=== PATIENT | male | born 1970 | race African-American/Black ===

== ENCOUNTER 2017-04-22 11:07 | Inpatient (IN) | payer OTHER ==
[~2017-04-22] VITALS: Ht 162.6 cm; Wt 61.0 kg
[2017-04-22] VITALS (13 sets, daily range): BP systolic 97–134; BP diastolic 51–76
[2017-04-22] MEDS ORDERED: GABA-531 PO (11:35)
[2017-04-22] MEDS ORDERED: OMEP20 PO (11:35)
[2017-04-22] MEDS ORDERED: BACL10TA PO (11:35)
[2017-04-22] MEDS ORDERED: MULT-1192 PO (11:35)
[2017-04-22] MEDS ORDERED: RIVA20TA PO (11:35)
[2017-04-22] MEDS ORDERED: VANCOMYCIN HCL 1 GM/D5% WATER 200 ML IV ONE ×2 (11:45→22:00)
[2017-04-22] MEDS ORDERED: SODIUM CHLORIDE 0.9% 1,000 ML IV ONE ×2 (12:00→13:45)
[2017-04-22 12:48] LABS: BASOPHILS % (AUTO) 0.2 % (0.0-2.0); EOSINOPHILS % (AUTO) 2.5 % (1.0-6.0); LYMPHOCYTES # (AUTO) 1.5 K/uL (1.0-4.8); LYMPHOCYTES % (AUTO) 12.9 % (22.0-44.0); MEAN CORPUSCULAR HEMOGLOBIN 23.7 pg (26.0-34.0); MEAN CORPUSCULAR HGB CONC 34.8 G/dL (31.0-37.0); MEAN CORPUSCULAR VOLUME 68 fL (80-100); MONOCYTES # (AUTO) 0.9 K/uL (0.1-1.0); MONOCYTES % (AUTO) 7.7 % (2.0-9.0); NEUTROPHILS # (AUTO) 9.2 K/uL (1.8-7.7); NEUTROPHILS % (AUTO) 76.7 % (40.0-70.0); PLATELET COUNT (AUTO) 379 K/uL (150-450); RED BLOOD CELL COUNT(AUTO) 2.21 MIL/uL (4.50-5.90); RED CELL DISTRIBUTION WIDTH 19.9 % (11.5-14.5)
[2017-04-22 12:54] LABS: HEMATOCRIT 15.1 % (41-53); HEMOGLOBIN 5.2 g/dL (13.5-17.5)
[2017-04-22 13:07] LABS: ANION GAP 10 mmol/L (8-16); CALCIUM, TOTAL 8.8 mg/dL (8.8-10.5); CARBON DIOXIDE 26 mmol/L (22-29); CHLORIDE 101 mmol/L (98-107); CREATININE 0.77 mg/dL (0.60-1.30); GLOMERULAR FILTR. RATE CALC > 60 mL/min (>60); POTASSIUM 3.6 mmol/L (3.5-5.1); SODIUM SERUM 137 mmol/L (136-145); UREA NITROGEN, BLOOD 9 mg/dL (7-18)
[2017-04-22 13:13] LABS: ALANINE AMINOTRANSFERASE 21 U/L (12-78); ALBUMIN 2.8 g/dL (3.4-5.0); ASPARTATE AMINOTRANSFERASE 15 U/L (15-37); BILIRUBIN,TOTAL 1.6 mg/dL (0.1-1.0); TOTAL PROTEIN, SERUM 7.3 g/dL (6.4-8.2)
[2017-04-22] MEDS ORDERED: ONDANSETRON HCL 4 MG/2 ML VIAL IVP PRN (13:30)
[2017-04-22] MEDS ORDERED: ACETAMINOPHEN 325 MG TABLET PO PRN (13:30)
[2017-04-22 13:34] LABS: ORIG DRAW (USER) PTC
[2017-04-22 13:45] LABS: RBC MORPHOLOGY COMMENT ABNORMAL RBC MORPH
[2017-04-22] MEDS ORDERED: MORPHINE SULFATE 2 MG/ML SYRINGE IVP PRN (13:45)
[2017-04-22] MEDS ORDERED: OxyCODONE HCL/ACETAMINOPHEN 5-325 MG TABLET PO PRN (13:45)
[2017-04-22] MEDS ORDERED: ALBUTEROL SULFATE 2.5 MG/0.5 ML NEB SOLUTION NEB PRN (13:45)
[2017-04-22] MEDS ORDERED: MAGNESIUM HYDROXIDE SUSPENSION 30 ML UDCUP PO PRN (13:45)
[2017-04-22 13:52] LABS: INR 1.4 (0.9-1.1); PROTHROMBIN TIME 14.7 SEC (9.4-11.6)
[2017-04-22 14:44] LABS: REFLEX LACTIC ACID? YES YES
[2017-04-22] MEDS ORDERED: GADOBUTROL 1 MMOL/ML 10 ML VIAL IVP ONE (16:14)
[2017-04-22] MEDS: MULTIVITAMINS WITH MINERALS, THERAPEUTIC TABLET PO SCH (18:44)
[2017-04-22] MEDS: PANTOPRAZOLE SODIUM 40 MG DR TABLET PO SCH (18:44)
[2017-04-22] MEDS ORDERED: INFLUENZA VIRUS VACCINE QVS 2017-18 (3YR+)/PF 60 MCG/0.5 ML SYRINGE IM ONE (18:45)
[2017-04-22] MEDS: DOCUSATE SODIUM 100 MG CAPSULE PO SCH (21:33)
[2017-04-22] MEDS: SOD FERRIC GLUC COMPLX/SUCROSE 125 MG in SODIUM CHLORIDE 0.9% 100 ML IV SCH (21:34)
[2017-04-23] VITALS (15 sets, daily range): BP systolic 112–152; BP diastolic 63–96
[2017-04-23] MEDS: VANCOMYCIN HCL 1 GM/D5% WATER 200 ML IV SCH ×3 (06:11→22:23)
[2017-04-23 06:42] LABS: BASOPHILS % (AUTO) 0.2 % (0.0-2.0); HEMATOCRIT 22.2 % (41-53); HEMOGLOBIN 7.6 g/dL (13.5-17.5); LYMPHOCYTES # (AUTO) 1.4 K/uL (1.0-4.8); LYMPHOCYTES % (AUTO) 10.9 % (22.0-44.0); MEAN CORPUSCULAR HGB CONC 34.5 G/dL (31.0-37.0); MEAN CORPUSCULAR VOLUME 73 fL (80-100); MONOCYTES # (AUTO) 0.9 K/uL (0.1-1.0); MONOCYTES % (AUTO) 6.8 % (2.0-9.0); NEUTROPHILS # (AUTO) 10.3 K/uL (1.8-7.7); NEUTROPHILS % (AUTO) 79.1 % (40.0-70.0); PLATELET COUNT (AUTO) 367 K/uL (150-450); RED BLOOD CELL COUNT(AUTO) 3.06 MIL/uL (4.50-5.90); RED CELL DISTRIBUTION WIDTH 23.5 % (11.5-14.5)
[2017-04-23 06:48] LABS: ANION GAP 8 mmol/L (8-16); CALCIUM, TOTAL 8.6 mg/dL (8.8-10.5); CARBON DIOXIDE 26 mmol/L (22-29); CHLORIDE 102 mmol/L (98-107); CREATININE 0.65 mg/dL (0.60-1.30); GLOMERULAR FILTR. RATE CALC > 60 mL/min (>60); POTASSIUM 3.6 mmol/L (3.5-5.1); SODIUM SERUM 136 mmol/L (136-145); UREA NITROGEN, BLOOD 7 mg/dL (7-18)
[2017-04-23] MEDS: DOCUSATE SODIUM 100 MG CAPSULE PO SCH ×2 (09:30→21:00)
[2017-04-23] MEDS: MULTIVITAMINS WITH MINERALS, THERAPEUTIC TABLET PO SCH (09:30)
[2017-04-23] MEDS: PANTOPRAZOLE SODIUM 40 MG DR TABLET PO SCH (09:31)
[2017-04-23 09:33] LABS: RBC MORPHOLOGY COMMENT ABNORMAL RBC MORPH
[2017-04-23] MEDS ORDERED: LORazepam 2 MG/ML VIAL IVP ONE (10:00)
[2017-04-23] MEDS: SOD FERRIC GLUC COMPLX/SUCROSE 125 MG in SODIUM CHLORIDE 0.9% 100 ML IV SCH (14:59)
[2017-04-23 15:02] LABS: APPEARANCE,URINE TURBID (CLEAR); GLUCOSE, URINE (UA) NEGATIVE (NEGATIVE); KETONES,URINE TRACE mg/dL (NEGATIVE); LEUKOCYTE ESTERASE ,URINE SMALL (NEGATIVE); OCCULT BLOOD,URINE NEGATIVE (NEGATIVE); PROTEIN,URINE TRACE (NEGATIVE)
[2017-04-23] MEDS ORDERED: SODIUM CHLORIDE 0.9% 1,000 ML IV ONE (15:02)
[2017-04-23] MEDS ORDERED: SODIUM CHLORIDE 0.9% 100 ML ONE (15:10)
[2017-04-23 15:24] LABS: ADD UA MICROSCOPIC YES
[2017-04-23 15:39] LABS: CALCIUM OXALATE CRYSTALS,UR Few /LPF (None Seen); RBC,URINE 0-2 /HPF (0-2); SQUAMOUS EPITHELIAL CELL,UR Few /LPF (None Seen); WBC,URINE None Seen /HPF (0-5)
[2017-04-23] MEDS: POTASSIUM CHL 20 MEQ/D5-0.45NS 1,000 ML IV SCH (21:08)
[2017-04-24] VITALS (15 sets, daily range): BP systolic 119–158; BP diastolic 57–93
[2017-04-24] MEDS: POTASSIUM CHL 20 MEQ/D5-0.45NS 1,000 ML IV SCH (05:30)
[2017-04-24] MEDS: VANCOMYCIN HCL 1 GM/D5% WATER 200 ML IV SCH ×3 (06:36→23:14)
[2017-04-24 06:56] LABS: BASOPHILS % (AUTO) 0.2 % (0.0-2.0); EOSINOPHILS % (AUTO) 1.7 % (1.0-6.0); HEMOGLOBIN 10.3 g/dL (13.5-17.5); LYMPHOCYTES # (AUTO) 1.1 K/uL (1.0-4.8); LYMPHOCYTES % (AUTO) 6.5 % (22.0-44.0); MEAN CORPUSCULAR HEMOGLOBIN 25.7 pg (26.0-34.0); MEAN CORPUSCULAR HGB CONC 34.2 G/dL (31.0-37.0); MEAN CORPUSCULAR VOLUME 75 fL (80-100); MONOCYTES # (AUTO) 0.3 K/uL (0.1-1.0); MONOCYTES % (AUTO) 1.5 % (2.0-9.0); NEUTROPHILS # (AUTO) 15.6 K/uL (1.8-7.7); PLATELET COUNT (AUTO) 200 K/uL (150-450); RED BLOOD CELL COUNT(AUTO) 3.98 MIL/uL (4.50-5.90); RED CELL DISTRIBUTION WIDTH 23.6 % (11.5-14.5); WHITE BLOOD COUNT (AUTO) 17.3 K/uL (4.5-11.0)
[2017-04-24 07:04] LABS: NEUTROPHILS % (AUTO) 90.1 % (40.0-70.0)
[2017-04-24 07:11] LABS: ANION GAP 8 mmol/L (8-16); CALCIUM, TOTAL 8.5 mg/dL (8.8-10.5); CARBON DIOXIDE 25 mmol/L (22-29); CHLORIDE 105 mmol/L (98-107); CREATININE 0.72 mg/dL (0.60-1.30); GLOMERULAR FILTR. RATE CALC > 60 mL/min (>60); POTASSIUM 4.2 mmol/L (3.5-5.1); SODIUM SERUM 138 mmol/L (136-145); UREA NITROGEN, BLOOD 6 mg/dL (7-18)
[2017-04-24] MEDS: DOCUSATE SODIUM 100 MG CAPSULE PO SCH ×2 (08:39→20:18)
[2017-04-24] MEDS: PANTOPRAZOLE SODIUM 40 MG DR TABLET PO SCH (08:39)
[2017-04-24] MEDS: MULTIVITAMINS WITH MINERALS, THERAPEUTIC TABLET PO SCH (08:39)
[2017-04-24 09:55] LABS: INR 1.1 (0.9-1.1); PROTHROMBIN TIME 11.9 SEC (9.4-11.6)
[2017-04-24] MEDS ORDERED: RINGERS SOLUTION,LACTATED 1,000 ML IV ONE ×2 (10:00→10:04)
[2017-04-24] MEDS ORDERED: SODIUM CHLORIDE 0.9% 10 ML ONE (10:53)
[2017-04-24] MEDS ORDERED: SODIUM CL IRRIG SOLN BAG 3,000 ML IRRIG ONE (10:54)
[2017-04-24] MEDS ORDERED: BACITRACIN 50,000 UNITS/VIAL ONE (10:55)
[2017-04-24] MEDS ORDERED: HYDROmorphone 2 MG/ML SYRINGE IVP PRN (12:15)
[2017-04-24] MEDS ORDERED: SODIUM HYPOCHLORITE 0.25% [HALF STRENGTH] 473 ML SOLUTION TP ONE (12:15)
[2017-04-24] MEDS ORDERED: MEPERIDINE-PF 25 MG/ML SYRINGE IVP PRN (12:15)
[2017-04-24] MEDS ORDERED: FentaNYL CITRATE-PF 100 MCG/2 ML VIAL IVP PRN (12:15)
[2017-04-24] MEDS: PIPERACILLIN/TAZO 3.375 GM/D5W 50 ML IV SCH ×2 (15:18→20:18)
[2017-04-24] MEDS: SOD FERRIC GLUC COMPLX/SUCROSE 125 MG in SODIUM CHLORIDE 0.9% 100 ML IV SCH (18:43)
[2017-04-24] MEDS: OXYGEN THERAPY IH SCH (20:00)
[2017-04-24] MEDS: BACLOFEN 10 MG TABLET PO SCH (21:17)
[2017-04-24] MEDS: GABAPENTIN 300 MG CAPSULE PO SCH (21:17)
[2017-04-24] MEDS ORDERED: METOCLOPRAMIDE HCL 5 MG/ML 2 ML VIAL IVP ONE (23:57)
[2017-04-24] MEDS ORDERED: MIDAZOLAM HCL 2 MG/2 ML VIAL IVP ONE (23:57)
[2017-04-24] MEDS ORDERED: FentaNYL CITRATE-PF 100 MCG/2 ML VIAL IVP ONE (23:57)
[2017-04-24] MEDS ORDERED: PROPOFOL 1% 20 ML VIAL IVP ONE (23:57)
[2017-04-24] MEDS ORDERED: DEXAMETHASONE SOD PHOS 4 MG/ML VIAL IVP ONE (23:57)
[2017-04-24] MEDS ORDERED: NEOSTIGMINE METHYLSULFATE 1 MG/ML 10 ML VIAL IVP ONE (23:57)
[2017-04-24] MEDS ORDERED: GLYCOPYRROLATE 0.2 MG/ML VIAL IM ONE (23:57)
[2017-04-24] MEDS ORDERED: ROCURONIUM BROMIDE 10 MG/ML 5 ML VIAL IVP ONE (23:57)
[2017-04-24] MEDS ORDERED: KETOROLAC TROMETHAMINE 60 MG/2 ML VIAL IM ONE (23:57)
[2017-04-24] MEDS ORDERED: ONDANSETRON HCL 4 MG/2 ML VIAL IVP ONE (23:57)
[2017-04-24] MEDS ORDERED: LIDOCAINE HCL/PF 2% 5 ML VIAL IM ONE (23:57)
[2017-04-25] MEDS: POTASSIUM CHL 20 MEQ/D5-0.45NS 1,000 ML IV SCH ×3 (01:30→23:07)
[2017-04-25] MEDS: PIPERACILLIN/TAZO 3.375 GM/D5W 50 ML IV SCH ×4 (03:47→20:41)
[2017-04-25 04:56] VITALS: BP 139/73
[2017-04-25] MEDS: ACETAMINOPHEN 325 MG TABLET PO PRN (05:24)
[2017-04-25] MEDS: VANCOMYCIN HCL 1 GM/D5% WATER 200 ML IV SCH ×3 (05:24→23:08)
[2017-04-25 06:51] LABS: ANION GAP 10 mmol/L (8-16); CALCIUM, TOTAL 8.7 mg/dL (8.8-10.5); CARBON DIOXIDE 25 mmol/L (22-29); CHLORIDE 106 mmol/L (98-107); CREATININE 0.79 mg/dL (0.60-1.30); GLOMERULAR FILTR. RATE CALC > 60 mL/min (>60); POTASSIUM 3.5 mmol/L (3.5-5.1); SODIUM SERUM 141 mmol/L (136-145); UREA NITROGEN, BLOOD 5 mg/dL (7-18)
[2017-04-25 07:53] VITALS: BP 135/61
[2017-04-25] MEDS: OXYGEN THERAPY IH SCH ×2 (08:00→20:41)
[2017-04-25] MEDS: BACLOFEN 10 MG TABLET PO SCH ×3 (08:14→20:41)
[2017-04-25] MEDS: GABAPENTIN 300 MG CAPSULE PO SCH (08:14)
[2017-04-25] MEDS: MULTIVITAMINS WITH MINERALS, THERAPEUTIC TABLET PO SCH (08:15)
[2017-04-25] MEDS: DOCUSATE SODIUM 100 MG CAPSULE PO SCH ×2 (08:15→21:00)
[2017-04-25] MEDS: PANTOPRAZOLE SODIUM 40 MG DR TABLET PO SCH (08:15)
[2017-04-25 11:50] VITALS: BP 158/97
[2017-04-25] MEDS: SOD FERRIC GLUC COMPLX/SUCROSE 125 MG in SODIUM CHLORIDE 0.9% 100 ML IV SCH (18:14)
[2017-04-25 19:52] VITALS: BP 139/79
[2017-04-25 23:48] VITALS: BP 174/90
[2017-04-26] MEDS: PIPERACILLIN/TAZO 3.375 GM/D5W 50 ML IV SCH ×4 (02:36→19:52)
[2017-04-26 04:50] VITALS: BP 151/81
[2017-04-26 05:59] LABS: EOSINOPHILS % (AUTO) 2.5 % (1.0-6.0); HEMATOCRIT 26.7 % (41-53); HEMOGLOBIN 9.2 g/dL (13.5-17.5); LYMPHOCYTES # (AUTO) 1.7 K/uL (1.0-4.8); LYMPHOCYTES % (AUTO) 12.4 % (22.0-44.0); MEAN CORPUSCULAR HEMOGLOBIN 25.8 pg (26.0-34.0); MEAN CORPUSCULAR HGB CONC 34.3 G/dL (31.0-37.0); MEAN CORPUSCULAR VOLUME 75 fL (80-100); MONOCYTES # (AUTO) 0.9 K/uL (0.1-1.0); MONOCYTES % (AUTO) 6.6 % (2.0-9.0); NEUTROPHILS # (AUTO) 10.9 K/uL (1.8-7.7); NEUTROPHILS % (AUTO) 78.5 % (40.0-70.0); PLATELET COUNT (AUTO) 386 K/uL (150-450); RED BLOOD CELL COUNT(AUTO) 3.54 MIL/uL (4.50-5.90); RED CELL DISTRIBUTION WIDTH 25.4 % (11.5-14.5); WHITE BLOOD COUNT (AUTO) 13.9 K/uL (4.5-11.0)
[2017-04-26 06:16] LABS: ANION GAP 9 mmol/L (8-16); CALCIUM, TOTAL 8.6 mg/dL (8.8-10.5); CARBON DIOXIDE 27 mmol/L (22-29); CHLORIDE 107 mmol/L (98-107); GLOMERULAR FILTR. RATE CALC > 60 mL/min (>60); POTASSIUM 3.7 mmol/L (3.5-5.1); SODIUM SERUM 143 mmol/L (136-145); UREA NITROGEN, BLOOD 7 mg/dL (7-18)
[2017-04-26] MEDS: VANCOMYCIN HCL 1 GM/D5% WATER 200 ML IV SCH ×3 (06:25→22:52)
[2017-04-26] MEDS: OXYGEN THERAPY IH SCH (08:00)
[2017-04-26 08:06] VITALS: BP 176/91
[2017-04-26 08:27] LABS: ERYTHROCYTE SEDIMENTATION RATE 85 MM/HR (0-15)
[2017-04-26] MEDS: POTASSIUM CHL 20 MEQ/D5-0.45NS 1,000 ML IV SCH ×2 (08:28→17:32)
[2017-04-26] MEDS: DOCUSATE SODIUM 100 MG CAPSULE PO SCH ×2 (08:29→21:00)
[2017-04-26] MEDS: GABAPENTIN 300 MG CAPSULE PO SCH (08:29)
[2017-04-26] MEDS: PANTOPRAZOLE SODIUM 40 MG DR TABLET PO SCH (08:29)
[2017-04-26] MEDS: BACLOFEN 10 MG TABLET PO SCH ×3 (08:29→19:52)
[2017-04-26] MEDS: MULTIVITAMINS WITH MINERALS, THERAPEUTIC TABLET PO SCH (08:29)
[2017-04-26 11:35] VITALS: BP 154/78
[2017-04-26] MEDS: AmLODIPine BESYLATE 5 MG TABLET PO SCH (13:41)
[2017-04-26 15:34] VITALS: BP 160/83
[2017-04-26] MEDS: SOD FERRIC GLUC COMPLX/SUCROSE 125 MG in SODIUM CHLORIDE 0.9% 100 ML IV SCH (17:30)
[2017-04-26 19:55] VITALS: BP 138/71
[2017-04-27] VITALS (8 sets, daily range): BP systolic 126–158; BP diastolic 77–105
[2017-04-27] MEDS: ACETAMINOPHEN 325 MG TABLET PO PRN ×3 (01:19→17:46)
[2017-04-27] MEDS: PIPERACILLIN/TAZO 3.375 GM/D5W 50 ML IV SCH ×4 (03:02→22:11)
[2017-04-27] MEDS ORDERED: SODIUM CL IRRIG SOLN BOTTLE 250 ML IRRIG ONE (05:16)
[2017-04-27] MEDS: VANCOMYCIN HCL 1 GM/D5% WATER 200 ML IV SCH ×2 (06:45→17:01)
[2017-04-27 06:57] LABS: ANION GAP 8 mmol/L (8-16); CALCIUM, TOTAL 8.9 mg/dL (8.8-10.5); CARBON DIOXIDE 28 mmol/L (22-29); CHLORIDE 104 mmol/L (98-107); CREATININE 0.89 mg/dL (0.60-1.30); GLOMERULAR FILTR. RATE CALC > 60 mL/min (>60); POTASSIUM 3.7 mmol/L (3.5-5.1); SODIUM SERUM 140 mmol/L (136-145); UREA NITROGEN, BLOOD 5 mg/dL (7-18)
[2017-04-27] MEDS: OXYGEN THERAPY IH SCH ×2 (08:00→20:00)
[2017-04-27] MEDS: PANTOPRAZOLE SODIUM 40 MG DR TABLET PO SCH (08:19)
[2017-04-27] MEDS: GABAPENTIN 300 MG CAPSULE PO SCH (08:19)
[2017-04-27] MEDS: BACLOFEN 10 MG TABLET PO SCH ×3 (08:19→22:10)
[2017-04-27] MEDS: MULTIVITAMINS WITH MINERALS, THERAPEUTIC TABLET PO SCH (08:19)
[2017-04-27] MEDS: AmLODIPine BESYLATE 5 MG TABLET PO SCH (08:19)
[2017-04-27] MEDS: DOCUSATE SODIUM 100 MG CAPSULE PO SCH (08:24)
[2017-04-27] MEDS ORDERED: HEPARIN SODIUM 1000 UNITS/NS 500 ML ONE (14:12)
[2017-04-27] MEDS: POTASSIUM CHL 20 MEQ/D5-0.45NS 1,000 ML IV SCH (15:31)
[2017-04-27] MEDS: SOD FERRIC GLUC COMPLX/SUCROSE 125 MG in SODIUM CHLORIDE 0.9% 100 ML IV SCH (19:51)
[2017-04-28] MEDS: ACETAMINOPHEN 325 MG TABLET PO PRN (00:39)
[2017-04-28] MEDS ORDERED: CefoTEtan DISOD 2 GM/DEXTROSE 50 ML IV SCH (04:00)
[2017-04-28 04:52] VITALS: BP 157/94
[2017-04-28 06:20] LABS: ANION GAP 8 mmol/L (8-16); CALCIUM, TOTAL 8.9 mg/dL (8.8-10.5); CARBON DIOXIDE 27 mmol/L (22-29); CHLORIDE 105 mmol/L (98-107); CREATININE 0.98 mg/dL (0.60-1.30); GLOMERULAR FILTR. RATE CALC > 60 mL/min (>60); POTASSIUM 4.2 mmol/L (3.5-5.1); SODIUM SERUM 140 mmol/L (136-145); UREA NITROGEN, BLOOD 9 mg/dL (7-18)
[2017-04-28 07:39] VITALS: BP 154/95
[2017-04-28] MEDS: AmLODIPine BESYLATE 5 MG TABLET PO SCH (07:58)
[2017-04-28] MEDS: MULTIVITAMINS WITH MINERALS, THERAPEUTIC TABLET PO SCH (07:58)
[2017-04-28] MEDS: GABAPENTIN 300 MG CAPSULE PO SCH (07:58)
[2017-04-28] MEDS: PANTOPRAZOLE SODIUM 40 MG DR TABLET PO SCH (07:58)
[2017-04-28] MEDS: OXYGEN THERAPY IH SCH (07:59)
[2017-04-28] MEDS: BACLOFEN 10 MG TABLET PO SCH ×3 (07:59→21:29)
[2017-04-28 11:59] VITALS: BP 127/89
[2017-04-28] MEDS: POTASSIUM CHL 20 MEQ/D5-0.45NS 1,000 ML IV SCH (14:00)
[2017-04-28 15:36] VITALS: BP 139/79
[2017-04-28] MEDS: CefTRIAXone SODIUM 2 GM in DEXTROSE 5%-WATER 50 ML IV SCH (17:35)
[2017-04-28] MEDS: SOD FERRIC GLUC COMPLX/SUCROSE 125 MG in SODIUM CHLORIDE 0.9% 100 ML IV SCH (18:57)
[2017-04-28 19:48] VITALS: BP 144/96
[2017-04-28 23:12] VITALS: BP 155/96
[2017-04-29] MEDS: POTASSIUM CHL 20 MEQ/D5-0.45NS 1,000 ML IV SCH (03:04)
[2017-04-29 05:07] VITALS: BP 143/90
[2017-04-29 06:31] LABS: ANION GAP 7 mmol/L (8-16); CALCIUM, TOTAL 9.4 mg/dL (8.8-10.5); CARBON DIOXIDE 27 mmol/L (22-29); CHLORIDE 104 mmol/L (98-107); CREATININE 0.92 mg/dL (0.60-1.30); GLOMERULAR FILTR. RATE CALC > 60 mL/min (>60); POTASSIUM 4.7 mmol/L (3.5-5.1); SODIUM SERUM 138 mmol/L (136-145); UREA NITROGEN, BLOOD 9 mg/dL (7-18)
[2017-04-29 07:59] VITALS: BP 135/98
[2017-04-29] MEDS: BACLOFEN 10 MG TABLET PO SCH ×2 (08:31→16:25)
[2017-04-29] MEDS: MULTIVITAMINS WITH MINERALS, THERAPEUTIC TABLET PO SCH (08:31)
[2017-04-29] MEDS: PANTOPRAZOLE SODIUM 40 MG DR TABLET PO SCH (08:31)
[2017-04-29] MEDS: GABAPENTIN 300 MG CAPSULE PO SCH (08:31)
[2017-04-29] MEDS ORDERED: LACTOBACILLUS ACIDOPHILUS/BULGARICUS TABLET PO SCH (09:15)
[2017-04-29 09:29] LABS: BASOPHILS % (AUTO) 0.4 % (0.0-2.0); EOSINOPHILS % (AUTO) 3.2 % (1.0-6.0); HEMATOCRIT 33.3 % (41-53); HEMOGLOBIN 11.2 g/dL (13.5-17.5); LYMPHOCYTES # (AUTO) 2.1 K/uL (1.0-4.8); LYMPHOCYTES % (AUTO) 16.5 % (22.0-44.0); MEAN CORPUSCULAR HEMOGLOBIN 25.5 pg (26.0-34.0); MEAN CORPUSCULAR HGB CONC 33.6 G/dL (31.0-37.0); MEAN CORPUSCULAR VOLUME 76 fL (80-100); MONOCYTES # (AUTO) 0.4 K/uL (0.1-1.0); MONOCYTES % (AUTO) 3.4 % (2.0-9.0); NEUTROPHILS # (AUTO) 9.7 K/uL (1.8-7.7); NEUTROPHILS % (AUTO) 76.5 % (40.0-70.0); PLATELET COUNT (AUTO) 463 K/uL (150-450); RED CELL DISTRIBUTION WIDTH 26.3 % (11.5-14.5); WHITE BLOOD COUNT (AUTO) 12.7 K/uL (4.5-11.0)
[2017-04-29 10:38] LABS: RBC MORPHOLOGY COMMENT ABNORMAL RBC MORPH
[2017-04-29] MEDS: AmLODIPine BESYLATE 5 MG TABLET PO SCH (10:51)
[2017-04-29 12:00] VITALS: BP 140/80
[2017-04-29 15:45] VITALS: BP 132/84
[2017-04-29] MEDS: CefTRIAXone SODIUM 2 GM in DEXTROSE 5%-WATER 50 ML IV SCH (16:25)
[2017-04-29] MEDS ORDERED: AMLO-511 PO (16:44)
[2017-04-29] MEDS ORDERED: CEFT2FRO3 IV (16:45)
[2017-04-29] MEDS ORDERED: ACID1TAB8 PO (16:46)
[2017-04-29] MEDS ORDERED: PANT20TA PO (16:47)
[2017-04-29] MEDS ORDERED: ACET-784 PO (16:47)
[2017-04-29] MEDS ORDERED: AUD NEB (16:48)
[2017-04-29] MEDS ORDERED: MOM30 PO (16:49)
[2017-04-29] MEDS ORDERED: OXYC500S2 PO (16:51)
[2017-06-05] MEDS ORDERED: PANT40TA25 PO (12:35)
[2017-06-05] MEDS ORDERED: PERCT PO (12:35)
== END 2017-04-29 18:30 | DRG 364 ==
LOC: EMS 11:11 → 6N 13:41
PROVIDERS: ADMIT Internal Medicine; ATTEND Internal Medicine
PROC: 30233N1 Transfusion of Nonautologous Red Blood Cells into Peripheral Vein, Percutaneous Approach (ICD-10-PCS; 2017-04-22)
PROC: 3E0234Z Introduction of Serum, Toxoid and Vaccine into Muscle, Percutaneous Approach (ICD-10-PCS; 2017-04-22)
PROC: 0QB30ZX Excision of Left Pelvic Bone, Open Approach, Diagnostic (ICD-10-PCS; 2017-04-24)
PROC: 0QB20ZX Excision of Right Pelvic Bone, Open Approach, Diagnostic (ICD-10-PCS; 2017-04-24)
PROC: 0QB20ZZ Excision of Right Pelvic Bone, Open Approach (ICD-10-PCS; 2017-04-24)
PROC: 0QB30ZZ Excision of Left Pelvic Bone, Open Approach (ICD-10-PCS; principal; 2017-04-24 11:00)
DX: L89.154 Pressure ulcer of sacral region, stage 4 (principal); G82.20 Paraplegia, unspecified; M86.9 Osteomyelitis, unspecified; D50.9 Iron deficiency anemia, unspecified; B96.4 Proteus (mirabilis) (morganii) as the cause of diseases classified elsewhere; I10 Essential (primary) hypertension; W34.00XA Accidental discharge from unspecified firearms or gun, initial encounter; Z87.891 Personal history of nicotine dependence; Z93.3 Colostomy status; Z23 Encounter for immunization
CPT/HCPCS: 36245; 36569; 72197; 76937; 82271; 83605; 85651; 86140; 86850; 86900; 86901; 86920; 87040; 87070; 87086; 87205; 88304; 88307; 88311; 90471; 93005; 93306; 93970; 96365; 99285; A9585; J0696; J1100; J1644; J1885; J2060; J2250; J2405; J2543; J2704; J2765; J2916; J3010; J3370; J3480; J3490; J7030; J7050; J7060; J7120; P9016

== ENCOUNTER → 2017-06-18 | Outpatient (CLI) | payer OTHER ==
[~2017-06-18] MED LIST: ACET-784 PO; ACID1TAB8 PO; AMLO-511 PO; AUD NEB; BACL10TA PO; ENOX30DI5 SQ; GABA-531 PO; MOM30 PO; MULT-1192 PO; PANT40TA25 PO; PERCT PO
[2017-06-18 15:25] VITALS: BP 102/50
== END | disposition home or self-care (01) ==
LOC: HBOWC 12:29
PROVIDERS: ATTEND Nurse Practitioner Adult Health
DX: L89.314 Pressure ulcer of right buttock, stage 4 (principal); L89.324 Pressure ulcer of left buttock, stage 4; I10 Essential (primary) hypertension; G82.20 Paraplegia, unspecified; M86.9 Osteomyelitis, unspecified; F17.210 Nicotine dependence, cigarettes, uncomplicated; F12.90 Cannabis use, unspecified, uncomplicated; Z90.49 Acquired absence of other specified parts of digestive tract

== ENCOUNTER → 2017-07-02 | Outpatient (CLI) | payer OTHER ==
[2017-07-02 10:25] VITALS: BP 137/56
== END | disposition home or self-care (01) ==
LOC: HBOWC 09:04
PROVIDERS: ATTEND Nurse Practitioner Adult Health
DX: L89.314 Pressure ulcer of right buttock, stage 4 (principal); L89.324 Pressure ulcer of left buttock, stage 4; I10 Essential (primary) hypertension; M86.9 Osteomyelitis, unspecified; G82.20 Paraplegia, unspecified; F12.90 Cannabis use, unspecified, uncomplicated; F17.210 Nicotine dependence, cigarettes, uncomplicated; Z79.899 Other long term (current) drug therapy; Z90.49 Acquired absence of other specified parts of digestive tract

== ENCOUNTER → 2017-07-09 | Outpatient (CLI) | payer OTHER ==
[2017-07-09 11:14] VITALS: BP 132/64
== END | disposition home or self-care (01) ==
LOC: HBOWC 09:16
PROVIDERS: ATTEND Nurse Practitioner Adult Health
DX: L89.314 Pressure ulcer of right buttock, stage 4 (principal); L89.324 Pressure ulcer of left buttock, stage 4; G82.20 Paraplegia, unspecified; I10 Essential (primary) hypertension; M86.9 Osteomyelitis, unspecified; G82.50 Quadriplegia, unspecified; F12.90 Cannabis use, unspecified, uncomplicated; F17.210 Nicotine dependence, cigarettes, uncomplicated; Z90.49 Acquired absence of other specified parts of digestive tract

== ENCOUNTER → 2017-07-16 | Outpatient (CLI) | payer OTHER ==
[2017-07-16 10:23] VITALS: BP 126/63
== END | disposition home or self-care (01) ==
LOC: HBOWC 09:07
PROVIDERS: ATTEND Nurse Practitioner Adult Health
DX: L89.314 Pressure ulcer of right buttock, stage 4 (principal); G82.20 Paraplegia, unspecified; M86.9 Osteomyelitis, unspecified; I10 Essential (primary) hypertension

== ENCOUNTER → 2017-08-06 | Outpatient (CLI) | payer OTHER ==
[~2017-08-06] MED LIST changes: +CEFA2IV IV; +ERTA1I IV
[2017-08-06 10:35] VITALS: BP 118/61
== END | disposition home or self-care (01) ==
LOC: HBOWC 09:50
PROVIDERS: ATTEND Nurse Practitioner Adult Health
DX: L89.314 Pressure ulcer of right buttock, stage 4 (principal); L89.324 Pressure ulcer of left buttock, stage 4; I10 Essential (primary) hypertension; M86.9 Osteomyelitis, unspecified; G82.20 Paraplegia, unspecified; G82.50 Quadriplegia, unspecified; F17.210 Nicotine dependence, cigarettes, uncomplicated; F12.90 Cannabis use, unspecified, uncomplicated; Z90.49 Acquired absence of other specified parts of digestive tract

== ENCOUNTER → 2017-08-13 | Outpatient (CLI) | payer OTHER ==
[2017-08-13 10:00] VITALS: BP 130/96
== END | disposition home or self-care (01) ==
LOC: HBOWC 08:35
PROVIDERS: ATTEND Nurse Practitioner Adult Health
DX: L89.324 Pressure ulcer of left buttock, stage 4 (principal); L89.314 Pressure ulcer of right buttock, stage 4; I10 Essential (primary) hypertension; M86.9 Osteomyelitis, unspecified; G82.50 Quadriplegia, unspecified; F17.210 Nicotine dependence, cigarettes, uncomplicated; F12.90 Cannabis use, unspecified, uncomplicated; Z90.49 Acquired absence of other specified parts of digestive tract

== ENCOUNTER → 2017-08-20 | Outpatient (CLI) | payer OTHER ==
[2017-08-20 09:17] VITALS: BP 106/57
== END | disposition home or self-care (01) ==
LOC: HBOWC 08:55
PROVIDERS: ATTEND Nurse Practitioner Adult Health
DX: L89.314 Pressure ulcer of right buttock, stage 4 (principal); L89.324 Pressure ulcer of left buttock, stage 4; I10 Essential (primary) hypertension; M86.9 Osteomyelitis, unspecified; G82.50 Quadriplegia, unspecified; F12.90 Cannabis use, unspecified, uncomplicated; F17.210 Nicotine dependence, cigarettes, uncomplicated; Z90.49 Acquired absence of other specified parts of digestive tract

== ENCOUNTER → 2017-08-27 | Outpatient (CLI) | payer OTHER ==
[2017-08-27 09:01] VITALS: BP 125/69
== END | disposition home or self-care (01) ==
LOC: HBOWC 08:46
PROVIDERS: ATTEND Nurse Practitioner Adult Health
DX: L89.324 Pressure ulcer of left buttock, stage 4 (principal); L89.314 Pressure ulcer of right buttock, stage 4; I10 Essential (primary) hypertension; M86.9 Osteomyelitis, unspecified; G82.50 Quadriplegia, unspecified; F17.210 Nicotine dependence, cigarettes, uncomplicated; F12.90 Cannabis use, unspecified, uncomplicated; Z93.3 Colostomy status; Z90.49 Acquired absence of other specified parts of digestive tract

== ENCOUNTER → 2017-09-03 | Outpatient (CLI) | payer OTHER ==
[2017-09-03 09:22] VITALS: BP 121/68
== END | disposition home or self-care (01) ==
LOC: HBOWC 08:44
PROVIDERS: ATTEND Nurse Practitioner Adult Health
DX: L89.314 Pressure ulcer of right buttock, stage 4 (principal); L89.324 Pressure ulcer of left buttock, stage 4; I10 Essential (primary) hypertension; M86.9 Osteomyelitis, unspecified; G82.50 Quadriplegia, unspecified; F12.90 Cannabis use, unspecified, uncomplicated; F17.210 Nicotine dependence, cigarettes, uncomplicated; Z90.49 Acquired absence of other specified parts of digestive tract; Z93.3 Colostomy status

== ENCOUNTER → 2017-09-10 | Outpatient (CLI) | payer OTHER ==
[2017-09-10 09:04] VITALS: BP 95/60
== END | disposition home or self-care (01) ==
LOC: HBOWC 08:41
PROVIDERS: ATTEND Nurse Practitioner Adult Health
DX: L89.314 Pressure ulcer of right buttock, stage 4 (principal); L89.324 Pressure ulcer of left buttock, stage 4; I10 Essential (primary) hypertension; M86.8X8 Other osteomyelitis, other site; G82.50 Quadriplegia, unspecified; E44.1 Mild protein-calorie malnutrition; F12.90 Cannabis use, unspecified, uncomplicated; F17.210 Nicotine dependence, cigarettes, uncomplicated; Z68.22 Body mass index [BMI] 22.0-22.9, adult; Z90.49 Acquired absence of other specified parts of digestive tract

== ENCOUNTER → 2017-09-17 | Outpatient (CLI) | payer OTHER ==
[~2017-09-17] MED LIST changes: +BISA10S PR; +FERR-89 PO; +RIVA10 PO; +ZINC220 PO
[2017-09-17 08:53] VITALS: BP 122/59
== END | disposition home or self-care (01) ==
LOC: HBOWC 08:36
PROVIDERS: ATTEND Nurse Practitioner Adult Health
DX: L89.314 Pressure ulcer of right buttock, stage 4 (principal); L89.324 Pressure ulcer of left buttock, stage 4; I10 Essential (primary) hypertension; E44.1 Mild protein-calorie malnutrition; M86.8X8 Other osteomyelitis, other site; G82.50 Quadriplegia, unspecified; G82.20 Paraplegia, unspecified; F12.90 Cannabis use, unspecified, uncomplicated; F17.210 Nicotine dependence, cigarettes, uncomplicated; Z90.49 Acquired absence of other specified parts of digestive tract; Z68.22 Body mass index [BMI] 22.0-22.9, adult
CPT/HCPCS: 97605

== ENCOUNTER → 2017-09-24 | Outpatient (CLI) | payer OTHER ==
[2017-09-24 09:25] VITALS: BP 114/59
== END | disposition home or self-care (01) ==
LOC: HBOWC 08:52
PROVIDERS: ATTEND Nurse Practitioner Adult Health
DX: L89.314 Pressure ulcer of right buttock, stage 4 (principal); L89.324 Pressure ulcer of left buttock, stage 4; I10 Essential (primary) hypertension; G82.50 Quadriplegia, unspecified; M86.8X8 Other osteomyelitis, other site; F12.90 Cannabis use, unspecified, uncomplicated; F17.210 Nicotine dependence, cigarettes, uncomplicated; Z90.49 Acquired absence of other specified parts of digestive tract
CPT/HCPCS: 97605

== ENCOUNTER → 2017-10-01 | Outpatient (CLI) | payer OTHER ==
[~2017-10-01] MED LIST changes: -BISA10S PR; -FERR-89 PO; -RIVA10 PO; -ZINC220 PO
[2017-10-01 09:44] VITALS: BP 117/69
== END | disposition home or self-care (01) ==
LOC: HBOWC 08:56
PROVIDERS: ATTEND Nurse Practitioner Adult Health
DX: L89.324 Pressure ulcer of left buttock, stage 4 (principal); L89.314 Pressure ulcer of right buttock, stage 4; I10 Essential (primary) hypertension; M86.8X8 Other osteomyelitis, other site; G82.50 Quadriplegia, unspecified; F17.210 Nicotine dependence, cigarettes, uncomplicated; F12.90 Cannabis use, unspecified, uncomplicated; Z90.49 Acquired absence of other specified parts of digestive tract
CPT/HCPCS: 97605

== ENCOUNTER → 2017-10-08 | Outpatient (CLI) | payer OTHER ==
[~2017-10-08] MED LIST changes: +BISA10S PR; -CEFA2IV IV; -ERTA1I IV; +FERR-89 PO; +RIVA10 PO; +ZINC220 PO
[2017-10-08 09:24] VITALS: BP 101/59
== END | disposition home or self-care (01) ==
LOC: HBOWC 08:40
PROVIDERS: ATTEND Nurse Practitioner Adult Health
DX: L89.314 Pressure ulcer of right buttock, stage 4 (principal); L89.324 Pressure ulcer of left buttock, stage 4; G82.20 Paraplegia, unspecified; I10 Essential (primary) hypertension; M86.8X8 Other osteomyelitis, other site; G82.50 Quadriplegia, unspecified; F12.90 Cannabis use, unspecified, uncomplicated; F17.210 Nicotine dependence, cigarettes, uncomplicated; Z90.49 Acquired absence of other specified parts of digestive tract; Z93.3 Colostomy status
CPT/HCPCS: 97605

== ENCOUNTER → 2017-10-12 | Outpatient (CLI) | payer OTHER ==
[~2017-10-12] MED LIST changes: +LIDOCAINE HCL 4% 50 ML SOLUTION TP ONE
[2017-10-12 12:32] VITALS: BP 101/62
== END | disposition home or self-care (01) ==
LOC: HBOWC 10:12
PROVIDERS: ATTEND Surgery Plastic and Reconstructive Surgery
DX: L89.314 Pressure ulcer of right buttock, stage 4 (principal); L89.324 Pressure ulcer of left buttock, stage 4; G82.20 Paraplegia, unspecified; I10 Essential (primary) hypertension; M86.8X8 Other osteomyelitis, other site; G82.50 Quadriplegia, unspecified; F17.210 Nicotine dependence, cigarettes, uncomplicated; F12.90 Cannabis use, unspecified, uncomplicated; Z90.49 Acquired absence of other specified parts of digestive tract
CPT/HCPCS: 11043

== ENCOUNTER → 2017-12-07 | Outpatient (CLI) | payer OTHER ==
[~2017-12-07] MED LIST changes: -ACET-784 PO; -ENOX30DI5 SQ; -LIDOCAINE HCL 4% 50 ML SOLUTION TP ONE; +ZOLP5 PO
[2017-12-07 08:45] VITALS: BP 119/73
== END | disposition home or self-care (01) ==
LOC: HBOWC 08:32
PROVIDERS: ATTEND Surgery Plastic and Reconstructive Surgery
DX: L89.314 Pressure ulcer of right buttock, stage 4 (principal); L89.324 Pressure ulcer of left buttock, stage 4; G82.20 Paraplegia, unspecified; I10 Essential (primary) hypertension; M86.8X8 Other osteomyelitis, other site; G82.50 Quadriplegia, unspecified; F17.210 Nicotine dependence, cigarettes, uncomplicated; F12.90 Cannabis use, unspecified, uncomplicated; Z90.49 Acquired absence of other specified parts of digestive tract
CPT/HCPCS: 11042

== ENCOUNTER → 2018-01-25 | Outpatient (CLI) | payer OTHER ==
[~2018-01-25] VITALS: Ht 165.1 cm; Wt 68.0 kg
[~2018-01-25] MED LIST changes: -AMLO-511 PO; +ASCO500 PO; -AUD NEB; -MOM30 PO; -PANT40TA25 PO; -ZINC220 PO
[2018-01-25 08:41] VITALS: BP 119/68
== END | disposition home or self-care (01) ==
LOC: HBOWC 08:07
PROVIDERS: ATTEND Surgery Plastic and Reconstructive Surgery
DX: L89.314 Pressure ulcer of right buttock, stage 4 (principal); L89.324 Pressure ulcer of left buttock, stage 4; G82.20 Paraplegia, unspecified; I10 Essential (primary) hypertension; M86.8X8 Other osteomyelitis, other site; G82.50 Quadriplegia, unspecified; F17.210 Nicotine dependence, cigarettes, uncomplicated; F12.90 Cannabis use, unspecified, uncomplicated; Z90.49 Acquired absence of other specified parts of digestive tract

== ENCOUNTER 2018-05-23 01:04 | Emergency (ER) | payer OTHER ==
[~2018-05-23] VITALS: Ht 162.6 cm; Wt 68.2 kg
[~2018-05-23 01:04] MED LIST changes: -ACID1TAB8 PO; -ZOLP5 PO
[2018-05-23] MEDS ORDERED: LIDOCAINE 2% 5 ML JELLY TP ONE (01:30)
[2018-05-23 05:19] VITALS: BP 125/77
== END 2018-05-23 05:38 | disposition home or self-care (01) ==
LOC: EMS 01:06
DX: T83.021A Displacement of indwelling urethral catheter, initial encounter (principal); I10 Essential (primary) hypertension; F12.90 Cannabis use, unspecified, uncomplicated; F17.210 Nicotine dependence, cigarettes, uncomplicated
CPT/HCPCS: 51702

== ENCOUNTER 2018-08-16 23:49 | Emergency (ER) | payer OTHER ==
[~2018-08-16] VITALS: Ht 165.1 cm; Wt 69.4 kg
[~2018-08-16 23:49] MED LIST changes: -ASCO500 PO; -BISA10S PR; -FERR-89 PO; -MULT-1192 PO
[2018-08-17 01:17] VITALS: BP 147/83
== END 2018-08-17 01:21 | disposition home or self-care (01) ==
LOC: EMS 23:50
DX: Z46.6 Encounter for fitting and adjustment of urinary device (principal); I10 Essential (primary) hypertension; F17.210 Nicotine dependence, cigarettes, uncomplicated; F12.90 Cannabis use, unspecified, uncomplicated; Z93.3 Colostomy status
CPT/HCPCS: 51702

== ENCOUNTER 2018-11-15 00:33 | Emergency (ER) | payer OTHER ==
[~2018-11-15] VITALS: Ht 165.1 cm; Wt 72.7 kg
[2018-11-15 01:18] LABS: APPEARANCE,URINE TURBID (CLEAR); GLUCOSE, URINE (UA) NEGATIVE (NEGATIVE); KETONES,URINE TRACE mg/dL (NEGATIVE); LEUKOCYTE ESTERASE ,URINE LARGE (NEGATIVE); NITRATE,URINE POSITIVE (NEGATIVE); OCCULT BLOOD,URINE SMALL (NEGATIVE); PROTEIN,URINE SEE CONFIRM (NEGATIVE)
[2018-11-15 01:23] LABS: BILIRUBIN,URINE PRELIM. POSITIVE (NEGATIVE)
[2018-11-15 01:25] LABS: BACTERIA,URINE Many /HPF (None Seen); SQUAMOUS EPITHELIAL CELL,UR None Seen /LPF (None Seen); WBC,URINE >100 /HPF (0-5)
[2018-11-15 01:26] LABS: SULFOSALICYLIC ACID,URINE 1+ (Negative)
[2018-11-15] MEDS ORDERED: CEPHALEXIN MONOHYDRATE 500 MG CAPSULE PO ONE (01:45)
[2018-11-15] MEDS ORDERED: SULFAMETHOX/TRIMETH DS 800-160 MG/TABLET PO ONE (01:45)
[2018-11-15 02:08] VITALS: BP 113/65
== END 2018-11-15 02:31 | disposition home or self-care (01) ==
LOC: EMS 00:34
DX: T83.021A Displacement of indwelling urethral catheter, initial encounter (principal); F17.210 Nicotine dependence, cigarettes, uncomplicated; F12.90 Cannabis use, unspecified, uncomplicated; I10 Essential (primary) hypertension; Y84.6 Urinary catheterization as the cause of abnormal reaction of the patient, or of later complication, without mention of misadventure at the time of the procedure; Y73.8 Miscellaneous gastroenterology and urology devices associated with adverse incidents, not elsewhere classified
CPT/HCPCS: 51702; 87086

== ENCOUNTER → 2019-03-07 | Outpatient (CLI) | payer OTHER | END | disposition home or self-care (01) | LOC: HBOWC 07:30 | PROVIDERS: ATTEND Surgery Plastic and Reconstructive Surgery | DX: T81.89XA Other complications of procedures, not elsewhere classified, initial encounter (principal); G82.20 Paraplegia, unspecified; I10 Essential (primary) hypertension; M86.8X8 Other osteomyelitis, other site; K21.9 Gastro-esophageal reflux disease without esophagitis; E43 Unspecified severe protein-calorie malnutrition; G89.4 Chronic pain syndrome; F12.90 Cannabis use, unspecified, uncomplicated; R32 Unspecified urinary incontinence; R26.9 Unspecified abnormalities of gait and mobility; Z87.891 Personal history of nicotine dependence; Z86.718 Personal history of other venous thrombosis and embolism; Z93.3 Colostomy status; Z68.22 Body mass index [BMI] 22.0-22.9, adult; Y83.8 Other surgical procedures as the cause of abnormal reaction of the patient, or of later complication, without mention of misadventure at the time of the procedure; Y92.89 Other specified places as the place of occurrence of the external cause | CPT/HCPCS: 11042; 11045 ==

== ENCOUNTER → 2019-03-14 | Outpatient (CLI) | payer OTHER ==
[~2019-03-14] MED LIST changes: +LIDOCAINE 4% 50 ML SOLUTION ONE
== END | disposition home or self-care (01) ==
LOC: HBOWC 07:31
PROVIDERS: ATTEND Surgery Plastic and Reconstructive Surgery
DX: T81.89XD Other complications of procedures, not elsewhere classified, subsequent encounter (principal); G82.20 Paraplegia, unspecified; I10 Essential (primary) hypertension; M86.8X8 Other osteomyelitis, other site; K21.9 Gastro-esophageal reflux disease without esophagitis; E43 Unspecified severe protein-calorie malnutrition; G89.4 Chronic pain syndrome; F12.90 Cannabis use, unspecified, uncomplicated; R32 Unspecified urinary incontinence; R26.9 Unspecified abnormalities of gait and mobility; Z87.891 Personal history of nicotine dependence; Z86.718 Personal history of other venous thrombosis and embolism; Z93.3 Colostomy status; Z68.22 Body mass index [BMI] 22.0-22.9, adult; Z79.01 Long term (current) use of anticoagulants; Y83.8 Other surgical procedures as the cause of abnormal reaction of the patient, or of later complication, without mention of misadventure at the time of the procedure
CPT/HCPCS: 11042

== ENCOUNTER → 2019-03-28 | Outpatient (CLI) | payer OTHER | END | disposition home or self-care (01) | LOC: HBOWC 08:34 | PROVIDERS: ATTEND Surgery Plastic and Reconstructive Surgery | DX: T81.89XD Other complications of procedures, not elsewhere classified, subsequent encounter (principal); G82.20 Paraplegia, unspecified; I10 Essential (primary) hypertension; M86.8X8 Other osteomyelitis, other site; K21.9 Gastro-esophageal reflux disease without esophagitis; E43 Unspecified severe protein-calorie malnutrition; G89.4 Chronic pain syndrome; F12.90 Cannabis use, unspecified, uncomplicated; R32 Unspecified urinary incontinence; R26.9 Unspecified abnormalities of gait and mobility; Z87.891 Personal history of nicotine dependence; Z86.718 Personal history of other venous thrombosis and embolism; Z93.3 Colostomy status; Z68.22 Body mass index [BMI] 22.0-22.9, adult; Z79.01 Long term (current) use of anticoagulants; Y83.8 Other surgical procedures as the cause of abnormal reaction of the patient, or of later complication, without mention of misadventure at the time of the procedure | CPT/HCPCS: 11043 ==

== ENCOUNTER → 2019-04-11 | Outpatient (CLI) | payer OTHER ==
[~2019-04-11] MED LIST changes: -LIDOCAINE 4% 50 ML SOLUTION ONE; +LIDOCAINE 4% 50 ML SOLUTION TP ONE
== END | disposition home or self-care (01) ==
LOC: HBOWC 08:19
PROVIDERS: ATTEND Surgery Plastic and Reconstructive Surgery
DX: T81.89XD Other complications of procedures, not elsewhere classified, subsequent encounter (principal); G82.20 Paraplegia, unspecified; I10 Essential (primary) hypertension; M86.8X8 Other osteomyelitis, other site; K21.9 Gastro-esophageal reflux disease without esophagitis; E43 Unspecified severe protein-calorie malnutrition; G89.4 Chronic pain syndrome; F12.90 Cannabis use, unspecified, uncomplicated; R32 Unspecified urinary incontinence; R26.9 Unspecified abnormalities of gait and mobility; Z87.891 Personal history of nicotine dependence; Z86.718 Personal history of other venous thrombosis and embolism; Z93.3 Colostomy status; Z68.22 Body mass index [BMI] 22.0-22.9, adult; Z79.01 Long term (current) use of anticoagulants; Y83.8 Other surgical procedures as the cause of abnormal reaction of the patient, or of later complication, without mention of misadventure at the time of the procedure
CPT/HCPCS: 11042

== ENCOUNTER → 2019-04-25 | Outpatient (CLI) | payer OTHER ==
[~2019-04-25] MED LIST changes: -LIDOCAINE 4% 50 ML SOLUTION TP ONE
== END | disposition home or self-care (01) ==
LOC: HBOWC 09:15
PROVIDERS: ATTEND Surgery Plastic and Reconstructive Surgery
DX: T81.89XD Other complications of procedures, not elsewhere classified, subsequent encounter (principal); G82.20 Paraplegia, unspecified; I10 Essential (primary) hypertension; M86.8X8 Other osteomyelitis, other site; K21.9 Gastro-esophageal reflux disease without esophagitis; E43 Unspecified severe protein-calorie malnutrition; G89.4 Chronic pain syndrome; F12.90 Cannabis use, unspecified, uncomplicated; R32 Unspecified urinary incontinence; R26.9 Unspecified abnormalities of gait and mobility; Z87.891 Personal history of nicotine dependence; Z86.718 Personal history of other venous thrombosis and embolism; Z93.3 Colostomy status; Z68.22 Body mass index [BMI] 22.0-22.9, adult; Z79.01 Long term (current) use of anticoagulants; Y83.8 Other surgical procedures as the cause of abnormal reaction of the patient, or of later complication, without mention of misadventure at the time of the procedure
CPT/HCPCS: 11042

== ENCOUNTER → 2019-05-16 | Outpatient (CLI) | payer OTHER | END | disposition home or self-care (01) | LOC: HBOWC 08:36 | PROVIDERS: ATTEND Surgery Plastic and Reconstructive Surgery | DX: T81.89XD Other complications of procedures, not elsewhere classified, subsequent encounter (principal); G82.20 Paraplegia, unspecified; I10 Essential (primary) hypertension; M86.8X8 Other osteomyelitis, other site; K21.9 Gastro-esophageal reflux disease without esophagitis; E43 Unspecified severe protein-calorie malnutrition; G89.4 Chronic pain syndrome; F12.90 Cannabis use, unspecified, uncomplicated; R32 Unspecified urinary incontinence; R26.9 Unspecified abnormalities of gait and mobility; Z87.891 Personal history of nicotine dependence; Z86.718 Personal history of other venous thrombosis and embolism; Z93.3 Colostomy status; Z68.22 Body mass index [BMI] 22.0-22.9, adult; Z79.01 Long term (current) use of anticoagulants; Y83.8 Other surgical procedures as the cause of abnormal reaction of the patient, or of later complication, without mention of misadventure at the time of the procedure | CPT/HCPCS: 11043 ==

== ENCOUNTER 2019-06-13 09:39 | Emergency (ER) | payer OTHER ==
[~2019-06-13] VITALS: Ht 165.1 cm; Wt 72.7 kg
[2019-06-13 12:06] VITALS: BP 137/76
== END 2019-06-13 12:36 | disposition home or self-care (01) ==
LOC: EDUNIT# 09:39 → EMS 09:41
DX: T83.021A Displacement of indwelling urethral catheter, initial encounter (principal); I10 Essential (primary) hypertension; F17.210 Nicotine dependence, cigarettes, uncomplicated; F12.90 Cannabis use, unspecified, uncomplicated; Y84.1 Kidney dialysis as the cause of abnormal reaction of the patient, or of later complication, without mention of misadventure at the time of the procedure

== ENCOUNTER 2019-08-23 10:07 | Emergency (ER) | payer OTHER ==
[~2019-08-23] VITALS: Ht 162.6 cm; Wt 70.5 kg
[2019-08-23] MEDS ORDERED: LIDOCAINE/PF 1% 5 ML VIAL ONE (10:58)
[2019-08-23] MEDS ORDERED: IODIXANOL 320 MG/ML 100 ML VIAL ONE (10:58)
[2019-08-23 12:35] VITALS: BP 149/91
== END 2019-08-23 13:30 | disposition home or self-care (01) ==
LOC: EMS 10:10
DX: Z43.5 Encounter for attention to cystostomy (principal); F17.210 Nicotine dependence, cigarettes, uncomplicated; F12.10 Cannabis abuse, uncomplicated; I10 Essential (primary) hypertension
CPT/HCPCS: 51705; 77002; 99284; J2001; Q9967

== ENCOUNTER 2019-09-03 07:45 | Emergency (ER) | payer OTHER ==
[~2019-09-03] VITALS: Ht 162.6 cm; Wt 72.0 kg
[~2019-09-03 07:45] MED LIST changes: -PERCT PO
[2019-09-03 08:37] VITALS: BP 134/94
== END 2019-09-03 09:19 | disposition home or self-care (01) ==
LOC: EMS 07:47
DX: T83.028A Displacement of other urinary catheter, initial encounter (principal); I10 Essential (primary) hypertension; F17.210 Nicotine dependence, cigarettes, uncomplicated; F12.90 Cannabis use, unspecified, uncomplicated; Y84.6 Urinary catheterization as the cause of abnormal reaction of the patient, or of later complication, without mention of misadventure at the time of the procedure

== ENCOUNTER → 2019-12-09 | Emergency (ER) | payer OTHER ==
[~2019-12-09] VITALS: Ht 165.1 cm; Wt 72.7 kg
[~2019-12-09] MED LIST changes: +CloNIDine HCL 0.1 MG TABLET PO ONE; +GABA-1181 PO; -GABA-531 PO
[2019-12-09 11:38] VITALS: BP 136/67
== END | disposition home or self-care (01) ==
LOC: EMS 08:59
DX: T83.018A Breakdown (mechanical) of other urinary catheter, initial encounter (principal); Q54.1 Hypospadias, penile; I10 Essential (primary) hypertension; F17.210 Nicotine dependence, cigarettes, uncomplicated; F12.90 Cannabis use, unspecified, uncomplicated; Y84.6 Urinary catheterization as the cause of abnormal reaction of the patient, or of later complication, without mention of misadventure at the time of the procedure

== ENCOUNTER 2020-07-19 12:05 | Emergency (ER) | payer OTHER ==
[~2020-07-19] VITALS: Ht 165.1 cm; Wt 72.7 kg
[~2020-07-19 12:05] MED LIST changes: -CloNIDine HCL 0.1 MG TABLET PO ONE
[2020-07-19] MEDS ORDERED: IOHEXOL 240 MG/ML 50 ML VIAL ONE (13:52)
[2020-07-19 17:45] VITALS: BP 147/74
== END 2020-07-19 18:15 | disposition home or self-care (01) ==
LOC: EMS 12:12
DX: T83.198A Other mechanical complication of other urinary devices and implants, initial encounter (principal); Y84.6 Urinary catheterization as the cause of abnormal reaction of the patient, or of later complication, without mention of misadventure at the time of the procedure; Y73.8 Miscellaneous gastroenterology and urology devices associated with adverse incidents, not elsewhere classified
CPT/HCPCS: 36245; 75984; 76000; 99285; C1769; C1887; Q9966

== ENCOUNTER 2020-07-30 09:30 | Emergency (ER) | payer OTHER ==
[~2020-07-30] VITALS: Ht 160 cm; Wt 73.0 kg
[2020-07-30] MEDS ORDERED: IOHEXOL 240 MG/ML 50 ML VIAL ONE (11:15)
[2020-07-30] MEDS ORDERED: LIDOCAINE 2% 5 ML JELLY ONE (11:36)
[2020-07-30] MEDS ORDERED: LIDOCAINE/PF 1% 5 ML VIAL ONE (11:53)
[2020-07-30 14:19] VITALS: BP 172/99
== END 2020-07-30 14:38 | disposition home or self-care (01) ==
LOC: EMS 09:39
DX: T83.198A Other mechanical complication of other urinary devices and implants, initial encounter (principal); F12.90 Cannabis use, unspecified, uncomplicated; F17.210 Nicotine dependence, cigarettes, uncomplicated; Y84.6 Urinary catheterization as the cause of abnormal reaction of the patient, or of later complication, without mention of misadventure at the time of the procedure
CPT/HCPCS: 36245; 75984; 99285; C1769; C1887; J2001; Q9966; 99284

== ENCOUNTER 2020-07-31 05:17 | Emergency (ER) | payer OTHER ==
[~2020-07-31] VITALS: Ht 165.1 cm; Wt 72.7 kg
[2020-07-31] MEDS ORDERED: IOHEXOL 240 MG/ML 50 ML VIAL ONE (10:34)
[2020-07-31] MEDS ORDERED: LIDOCAINE 2% 5 ML JELLY ONE (10:35)
[2020-07-31] MEDS ORDERED: LIDOCAINE/PF 1% 30 ML VIAL ONE (12:02)
[2020-07-31 14:10] VITALS: BP 179/87
== END 2020-07-31 14:31 | disposition home or self-care (01) ==
LOC: EMS 05:20
DX: T83.198A Other mechanical complication of other urinary devices and implants, initial encounter (principal); F12.90 Cannabis use, unspecified, uncomplicated; F17.210 Nicotine dependence, cigarettes, uncomplicated; Y84.6 Urinary catheterization as the cause of abnormal reaction of the patient, or of later complication, without mention of misadventure at the time of the procedure
CPT/HCPCS: 36245; 75984; 76000; 99285; C1769; C1887; J3490; Q9966

== ENCOUNTER 2020-10-11 05:45 | Emergency (ER) | payer OTHER ==
[~2020-10-11] VITALS: Ht 165.1 cm; Wt 72.7 kg
[2020-10-11] MEDS ORDERED: IOHEXOL 240 MG/ML 50 ML VIAL ONE (07:59)
[2020-10-11] MEDS ORDERED: LIDOCAINE 2% 5 ML JELLY ONE (08:33)
[2020-10-11 10:45] VITALS: BP 176/92
== END 2020-10-11 11:34 | disposition home or self-care (01) ==
LOC: EMS 05:46
DX: T83.028A Displacement of other urinary catheter, initial encounter (principal); F17.210 Nicotine dependence, cigarettes, uncomplicated; F12.90 Cannabis use, unspecified, uncomplicated
CPT/HCPCS: 36245; 51705; 76000; 99242; 99284; C1887; Q9966

== ENCOUNTER 2021-03-10 15:06 | Inpatient (IN) | payer OTHER ==
[~2021-03-10] VITALS: Ht 165.1 cm; Wt 72.7 kg
[~2021-03-10 15:06] MED LIST changes: -RIVA10 PO; +RIVA10TA PO
[2021-03-10 16:39] LABS: BASOPHILS % (AUTO) 0.5 % (0.0-2.0); EOSINOPHILS % (AUTO) 3.2 % (1.0-6.0); HEMATOCRIT 28.8 % (41-53); HEMOGLOBIN 10.3 g/dL (13.5-17.5); LYMPHOCYTES # (AUTO) 2.2 K/uL (1.0-4.8); LYMPHOCYTES % (AUTO) 22.8 % (22.0-44.0); MEAN CORPUSCULAR HEMOGLOBIN 28.1 pg (26.0-34.0); MEAN CORPUSCULAR HGB CONC 35.8 G/dL (31.0-37.0); MEAN CORPUSCULAR VOLUME 79 fL (80-100); MONOCYTES # (AUTO) 0.6 K/uL (0.1-1.0); MONOCYTES % (AUTO) 6.2 % (2.0-9.0); NEUTROPHILS # (AUTO) 6.6 K/uL (1.8-7.7); NEUTROPHILS % (AUTO) 67.3 % (40.0-70.0); PLATELET COUNT (AUTO) 227 K/uL (150-450); RED BLOOD CELL COUNT(AUTO) 3.67 MIL/uL (4.50-5.90)
[2021-03-10 16:50] LABS: ANION GAP 11 mmol/L (8-16); CALCIUM, TOTAL 9.1 mg/dL (8.8-10.5); CARBON DIOXIDE 27 mmol/L (22-29); CHLORIDE 105 mmol/L (98-107); CREATININE 0.66 mg/dL (0.60-1.30); GLOMERULAR FILTR. RATE CALC > 60 mL/min (>60); GLUCOSE,RANDOM 90 mg/dL (70-110); SODIUM SERUM 143 mmol/L (136-145); UREA NITROGEN, BLOOD 12 mg/dL (7-18)
[2021-03-10 16:51] LABS: INR 1.1 (0.9-1.1); PROTHROMBIN TIME 11.2 SEC (9.4-11.6)
[2021-03-10 16:55] LABS: ALANINE AMINOTRANSFERASE 19 U/L (12-78); ALBUMIN 3.9 g/dL (3.4-5.0); ALKALINE PHOSPHATASE 64 U/L (46-116); ASPARTATE AMINOTRANSFERASE 15 U/L (15-37); TOTAL PROTEIN, SERUM 7.8 g/dL (6.4-8.2)
[2021-03-10] MEDS ORDERED: ACETAMINOPHEN 325 MG TABLET PO PRN (17:30)
[2021-03-10] MEDS ORDERED: ZOLPIDEM TARTRATE 5 MG TABLET PO PRN (17:30)
[2021-03-10] MEDS ORDERED: BISACODYL 10 MG RECTAL RECTAL SUPPOSITORY PR PRN (17:30)
[2021-03-10] MEDS ORDERED: MAGNESIUM HYDROXIDE SUSPENSION 30 ML UDCUP PO PRN (17:30)
[2021-03-10] MEDS ORDERED: ONDANSETRON HCL 4 MG/2 ML VIAL IVP PRN (17:30)
[2021-03-10] MEDS ORDERED: MORPHINE SULFATE 2 MG/ML SYRINGE IVP PRN (17:30)
[2021-03-10 18:37] LABS: COVID AG,FIA SOURCE NASOPHARYNGEAL
[2021-03-10 20:48] VITALS: BP 185/95
[2021-03-10] MEDS: DOCUSATE SODIUM 100 MG CAPSULE PO SCH (20:52)
[2021-03-10] MEDS: BACLOFEN 10 MG TABLET PO SCH (20:52)
[2021-03-10] MEDS ORDERED: AmLODIPine BESYLATE 5 MG TABLET PO ONE (21:15)
[2021-03-10] MEDS: HEPARIN SODIUM,PORCINE 5,000 UNITS/ML VIAL SQ SCH (23:36)
[2021-03-11 05:58] VITALS: BP 154/105
[2021-03-11] MEDS: HYDROCODONE/ACETAMINOPHEN 5-325 MG TABLET PO PRN ×2 (05:58→15:11)
[2021-03-11 07:55] VITALS: BP 128/77
[2021-03-11] MEDS: HEPARIN SODIUM,PORCINE 5,000 UNITS/ML VIAL SQ SCH ×3 (08:00→16:00)
[2021-03-11] MEDS: DOCUSATE SODIUM 100 MG CAPSULE PO SCH ×2 (08:21→08:28)
[2021-03-11] MEDS: BACLOFEN 10 MG TABLET PO SCH (08:22)
[2021-03-11] MEDS: PANTOPRAZOLE SODIUM 40 MG DR TABLET PO SCH ×2 (08:23→08:28)
[2021-03-11] MEDS ORDERED: AmLODIPine BESYLATE 5 MG TABLET PO SCH (09:00)
[2021-03-11] MEDS ORDERED: GABAPENTIN 300 MG CAPSULE PO SCH (09:00)
[2021-03-11] MEDS ORDERED: IOHEXOL 240 MG/ML 20 ML VIAL ONE (10:55)
[2021-03-11] MEDS ORDERED: LIDOCAINE 2% 5 ML JELLY ONE (10:58)
[2021-03-11] MEDS ORDERED: LIDOCAINE/PF 1% 30 ML VIAL ONE (12:41)
[2021-03-11] MEDS ORDERED: IOHEXOL 350 MG/ML 100 ML VIAL ONE (12:43)
[2021-03-11] MEDS ORDERED: MIDAZOLAM HCL 2 MG/2 ML VIAL ONE (12:53)
[2021-03-11] MEDS ORDERED: FentaNYL CITRATE PF 100 MCG/2 ML VIAL ONE (12:54)
[2021-03-11] MEDS ORDERED: INFLUENZA VIRUS VACCINE QVS 2021-22 (6MO+)/PF 60 MCG/0.5 ML SYRINGE IM. ONE (14:30)
[2021-03-11] MEDS ORDERED: AMLO5TAB66 PO (15:33)
[2021-03-11 16:05] VITALS: BP 157/95
== END 2021-03-11 18:30 | disposition home or self-care (01) | DRG 466 ==
LOC: EMS 15:10 → 6N 18:22
PROVIDERS: ADMIT Internal Medicine; ATTEND Internal Medicine
PROC: 0T9B30Z Drainage of Bladder with Drainage Device, Percutaneous Approach (ICD-10-PCS; principal; 2021-03-11)
PROC: BT101ZZ Fluoroscopy of Bladder using Low Osmolar Contrast (ICD-10-PCS; 2021-03-11)
PROC: BT40ZZZ Ultrasonography of Bladder (ICD-10-PCS; 2021-03-11)
DX: T83.010A Breakdown (mechanical) of cystostomy catheter, initial encounter (principal); G82.20 Paraplegia, unspecified; Z20.822 Contact with and (suspected) exposure to COVID-19; Y83.8 Other surgical procedures as the cause of abnormal reaction of the patient, or of later complication, without mention of misadventure at the time of the procedure; D50.9 Iron deficiency anemia, unspecified; Z79.01 Long term (current) use of anticoagulants; Z79.899 Other long term (current) drug therapy; Z87.891 Personal history of nicotine dependence; Z90.49 Acquired absence of other specified parts of digestive tract; Z93.3 Colostomy status; Y92.89 Other specified places as the place of occurrence of the external cause
CPT/HCPCS: 36245; 75989; 76001; 76937; 80053; 85025; 85610; 85730; 87081; 90686; 99285; J1644; J2250; J3010; J3490; Q9966; Q9967; 36415-L1; 36415-TC; G0008

== ENCOUNTER 2021-05-08 11:47 | Emergency (ER) | payer OTHER ==
[~2021-05-08] VITALS: Ht 165.1 cm; Wt 72.7 kg
[~2021-05-08 11:47] MED LIST changes: +AMLO5TAB66 PO
[2021-05-08] MEDS ORDERED: LIDOCAINE 2% 5 ML JELLY ONE (13:33)
[2021-05-08] MEDS ORDERED: IOHEXOL 180 MG/ML 20 ML VIAL ONE ×2 (13:35→14:09)
[2021-05-08 15:54] VITALS: BP 154/98
== END 2021-05-08 16:16 | disposition home or self-care (01) ==
LOC: EMS 11:51
DX: T83.198A Other mechanical complication of other urinary devices and implants, initial encounter (principal); F12.90 Cannabis use, unspecified, uncomplicated; F17.210 Nicotine dependence, cigarettes, uncomplicated; Z79.899 Other long term (current) drug therapy
CPT/HCPCS: 36245; 75984; 76000; 99242; 99284; C1769; Q9965

== ENCOUNTER 2021-06-02 01:38 | Emergency (ER) | payer OTHER ==
[~2021-06-02] VITALS: Ht 165.1 cm; Wt 72.7 kg
[2021-06-02 05:28] LABS: BASOPHILS % (AUTO) 0.6 % (0.0-2.0); EOSINOPHILS % (AUTO) 2.7 % (1.0-6.0); HEMATOCRIT 23.2 % (41-53); HEMOGLOBIN 8.3 g/dL (13.5-17.5); LYMPHOCYTES # (AUTO) 1.7 K/uL (1.0-4.8); LYMPHOCYTES % (AUTO) 21.6 % (22.0-44.0); MEAN CORPUSCULAR HEMOGLOBIN 24.7 pg (26.0-34.0); MEAN CORPUSCULAR HGB CONC 35.6 G/dL (31.0-37.0); MEAN CORPUSCULAR VOLUME 70 fL (80-100); MONOCYTES # (AUTO) 0.8 K/uL (0.1-1.0); MONOCYTES % (AUTO) 10.3 % (2.0-9.0); NEUTROPHILS % (AUTO) 64.8 % (40.0-70.0); PLATELET COUNT (AUTO) 293 K/uL (150-450); RED BLOOD CELL COUNT(AUTO) 3.35 MIL/uL (4.50-5.90); RED CELL DISTRIBUTION WIDTH 22.5 % (11.5-14.5)
[2021-06-02 05:46] LABS: ANION GAP 10 mmol/L (8-16); CALCIUM, TOTAL 8.9 mg/dL (8.8-10.5); CARBON DIOXIDE 27 mmol/L (22-29); CHLORIDE 108 mmol/L (98-107); CREATININE 0.74 mg/dL (0.60-1.30); GLOMERULAR FILTR. RATE CALC > 60 mL/min (>60); GLUCOSE,RANDOM 103 mg/dL (70-110); POTASSIUM 3.5 mmol/L (3.5-5.1); SODIUM SERUM 145 mmol/L (136-145); UREA NITROGEN, BLOOD 8 mg/dL (7-18)
[2021-06-02 05:52] LABS: ALANINE AMINOTRANSFERASE 13 U/L (12-78); ALKALINE PHOSPHATASE 62 U/L (46-116); ASPARTATE AMINOTRANSFERASE 10 U/L (15-37); BILIRUBIN,TOTAL 0.9 mg/dL (0.1-1.0)
[2021-06-02] MEDS ORDERED: CARV25 PO (08:44)
[2021-06-02] MEDS ORDERED: CHOL-35 PO (08:46)
[2021-06-02] MEDS ORDERED: ASCO500 PO (08:46)
[2021-06-02] MEDS ORDERED: MULT-1203 PO (08:46)
[2021-06-02] MEDS ORDERED: FERR-82 PO (08:46)
[2021-06-02] MEDS ORDERED: CARVEDILOL 3.125 MG TABLET PO SCH ×2 (09:00→12:45)
[2021-06-02] MEDS: GABAPENTIN 300 MG CAPSULE PO SCH ×3 (10:02→21:47)
[2021-06-02] MEDS: BACLOFEN 10 MG TABLET PO SCH ×2 (10:03→21:46)
[2021-06-02] MEDS: CARVEDILOL 25 MG TABLET PO SCH (13:11)
[2021-06-02] MEDS ORDERED: GABAPENTIN 300 MG CAPSULE PO SCH (16:00)
[2021-06-02] MEDS ORDERED: HYDROCODONE/ACETAMINOPHEN 5-325 MG TABLET PO PRN (16:30)
[2021-06-02] MEDS ORDERED: MORPHINE SULFATE 2 MG/ML SYRINGE IVP PRN (16:30)
[2021-06-02] MEDS ORDERED: BISACODYL 10 MG RECTAL RECTAL SUPPOSITORY PR PRN (16:30)
[2021-06-02] MEDS ORDERED: MAGNESIUM HYDROXIDE SUSPENSION 30 ML UDCUP PO PRN (16:30)
[2021-06-02] MEDS ORDERED: ACETAMINOPHEN 325 MG TABLET PO PRN (16:30)
[2021-06-02] MEDS ORDERED: ONDANSETRON HCL 4 MG/2 ML VIAL IVP PRN (16:30)
[2021-06-02] MEDS ORDERED: ZOLPIDEM TARTRATE 5 MG TABLET PO PRN (16:30)
[2021-06-02] MEDS ORDERED: CAMPHOR/MENTHOL/PHENOL 10 GM OINTMENT TP PRN (17:30)
[2021-06-02] MEDS ORDERED: RIVAROXABAN 20 MG TABLET PO SCH (18:00)
[2021-06-02] MEDS: DOCUSATE SODIUM 100 MG CAPSULE PO SCH ×2 (21:00→21:47)
[2021-06-02] MEDS: HEPARIN SODIUM,PORCINE 5,000 UNITS/ML VIAL SQ SCH (23:04)
[2021-06-03] MEDS: HEPARIN SODIUM,PORCINE 5,000 UNITS/ML VIAL SQ SCH ×2 (08:00→15:51)
[2021-06-03] MEDS: GABAPENTIN 300 MG CAPSULE PO SCH ×2 (08:47→16:12)
[2021-06-03] MEDS: BACLOFEN 10 MG TABLET PO SCH (08:47)
[2021-06-03] MEDS ORDERED: RIVAROXABAN 10 MG TABLET PO SCH (09:00)
[2021-06-03] MEDS ORDERED: CHOLECALCIFEROL (VIT D3) 1,000 UNITS [25 MCG] TABLET PO SCH (09:00)
[2021-06-03] MEDS ORDERED: CARVEDILOL 25 MG TABLET PO SCH (09:00)
[2021-06-03] MEDS ORDERED: PANTOPRAZOLE SODIUM 40 MG DR TABLET PO SCH (09:00)
[2021-06-03] MEDS ORDERED: ASCORBIC ACID 500 MG TABLET PO SCH (09:00)
[2021-06-03] MEDS: CARVEDILOL 25 MG TABLET PO SCH (09:18)
[2021-06-03 11:50] LABS: COVID AG,FIA SOURCE NASOPHARYNGEAL
[2021-06-03] MEDS ORDERED: IOHEXOL 180 MG/ML 20 ML VIAL ONE (13:53)
[2021-06-03 17:53] VITALS: BP 131/85
== END 2021-06-03 17:55 | disposition home or self-care (01) ==
LOC: EMS 01:41
DX: T83.098A Other mechanical complication of other urinary catheter, initial encounter (principal); F12.90 Cannabis use, unspecified, uncomplicated; F17.210 Nicotine dependence, cigarettes, uncomplicated; Z79.899 Other long term (current) drug therapy; Z20.822 Contact with and (suspected) exposure to COVID-19
CPT/HCPCS: 36245; 36415; 76000; 80053; 85025; 87426; 99242; 99285; Q9965

== ENCOUNTER 2021-08-13 10:39 | Inpatient (IN) | payer OTHER ==
[~2021-08-13] VITALS: Ht 165.1 cm; Wt 73.0 kg
[2021-08-13] VITALS (13 sets, daily range): BP systolic 100–155; BP diastolic 54–90
[~2021-08-13 10:39] MED LIST changes: -AMLO5TAB66 PO; +AMOX1TAB16 PO; +ASCO500 PO; +CARV25 PO; +CHOL25TA4 PO; +FERR-82 PO; +GABA-1201 PO; +MULT-1203 PO; +PANT-31 PO; -RIVA10TA PO; +RIVA20TA PO
[2021-08-13] MEDS ORDERED: 0.9% SODIUM CHLORIDE 10 ML SYRINGE IVP PRN (11:00)
[2021-08-13] MEDS ORDERED: SODIUM CHLORIDE 0.9% 1,000 ML IV ONE ×4 (11:15→14:00)
[2021-08-13 11:28] LABS: BASOPHILS % (AUTO) 0.2 % (0.0-2.0); EOSINOPHILS % (AUTO) 0.1 % (1.0-6.0); LYMPHOCYTES # (AUTO) 0.4 K/uL (1.0-4.8); LYMPHOCYTES % (AUTO) 2.4 % (22.0-44.0); MEAN CORPUSCULAR HEMOGLOBIN 23.9 pg (26.0-34.0); MEAN CORPUSCULAR HGB CONC 33.1 G/dL (31.0-37.0); MEAN CORPUSCULAR VOLUME 72 fL (80-100); MONOCYTES % (AUTO) 5.9 % (2.0-9.0); PLATELET COUNT (AUTO) 257 K/uL (150-450); RED BLOOD CELL COUNT(AUTO) 2.63 MIL/uL (4.50-5.90); RED CELL DISTRIBUTION WIDTH 25.5 % (11.5-14.5)
[2021-08-13 11:29] LABS: INR 1.3 (0.9-1.1); NEUTROPHILS % (AUTO) 91.4 % (40.0-70.0); PROTHROMBIN TIME 13.4 SEC (9.4-11.6)
[2021-08-13 11:30] LABS: HEMOGLOBIN 6.3 g/dL (13.5-17.5)
[2021-08-13] MEDS ORDERED: IOHEXOL 350 MG/ML 100 ML VIAL ONE (11:32)
[2021-08-13] MEDS ORDERED: SODIUM CHLORIDE 0.9% 100 ML ONE (11:33)
[2021-08-13 11:37] LABS: ANION GAP 10 mmol/L (8-16); CALCIUM, TOTAL 8.8 mg/dL (8.8-10.5); CARBON DIOXIDE 25 mmol/L (22-29); CHLORIDE 98 mmol/L (98-107); CREATININE 1.17 mg/dL (0.60-1.30); GLOMERULAR FILTR. RATE CALC > 60 mL/min (>60); GLUCOSE,RANDOM 97 mg/dL (70-110); POTASSIUM 4.1 mmol/L (3.5-5.1); SODIUM SERUM 133 mmol/L (136-145); UREA NITROGEN, BLOOD 23 mg/dL (7-18)
[2021-08-13 11:41] LABS: ALANINE AMINOTRANSFERASE 23 U/L (12-78); ALBUMIN 2.7 g/dL (3.4-5.0); ALKALINE PHOSPHATASE 69 U/L (46-116); ASPARTATE AMINOTRANSFERASE 23 U/L (15-37); BILIRUBIN,TOTAL 2.2 mg/dL (0.1-1.0); TOTAL PROTEIN, SERUM 8.1 g/dL (6.4-8.2)
[2021-08-13] MEDS ORDERED: VANCOMYCIN 1GM/WATER(PEG/NADA) 200 ML IV ONE (11:45)
[2021-08-13] MEDS ORDERED: CEFEPIME HCL 2 GM in DEXTROSE 5%-WATER 50 ML IV ONE (11:45)
[2021-08-13 11:47] LABS: LACTIC ACID 2.3 mmol/L (0.4-2.0)
[2021-08-13 11:58] LABS: APPEARANCE,URINE HAZY (CLEAR); BILIRUBIN,URINE NEGATIVE (NEGATIVE); GLUCOSE, URINE (UA) NEGATIVE (NEGATIVE); KETONES,URINE NEGATIVE (NEGATIVE); LEUKOCYTE ESTERASE ,URINE SMALL (NEGATIVE); NITRATE,URINE NEGATIVE (NEGATIVE); OCCULT BLOOD,URINE MODERATE (NEGATIVE); PROTEIN,URINE 30-70 mg/dL (NEGATIVE); SPECIFIC GRAVITIY, URINE 1.016 (1.003-1.030); UROBILINOGEN,URINE <=1.0 mg/dL (<=1.0)
[2021-08-13] MEDS ORDERED: VANCOMYCIN HCL 1 GM in DEXTROSE 5%-WATER 250 ML IV ONE (12:00)
[2021-08-13 12:16] LABS: BACTERIA,URINE Few /HPF (None Seen)
[2021-08-13 13:15] LABS: ABG BASE EXCESS 0.3 mmol/L (-2.0-3.0); ABG CARBOXYHEMOGLOBIN 2.7 % (0.0-1.5); ABG HCO3 24.6 mmol/L (22.0-26.0); ABG METHEMOGLOBIN 0.4 % (0.0-1.5); ABG OXYGEN CONTENT 7.6 mL/dL (15.0-23.0); ABG OXYGEN SATURATION 86.7 % (95.0-98.0); ABG PCO2 37 mmHg (35-45); PO2, ARTERIAL BG 49.8 mmHg (84.0-92.0); SOURCE, BLOOD GAS ARTERIAL
[2021-08-13 13:20] LABS: ABG TOTAL HEMOGLOBIN 6.4 G/dL (12.0-18.0); SITE, BLOOD GAS LA
[2021-08-13 13:22] LABS: ABG PH 7.438 (7.35-7.450); O2 DEVICE,BLOOD GAS ROOM AIR (ROOM AIR)
[2021-08-13 13:29] LABS: COVID AG,FIA SOURCE NASAL SWAB
[2021-08-13] MEDS ORDERED: ACETAMINOPHEN 325 MG TABLET PO PRN (14:00)
[2021-08-13] MEDS ORDERED: ONDANSETRON HCL 4 MG/2 ML VIAL IVP PRN (14:00)
[2021-08-13] MEDS ORDERED: BISACODYL 10 MG RECTAL RECTAL SUPPOSITORY PR PRN (14:00)
[2021-08-13] MEDS ORDERED: MAGNESIUM HYDROXIDE SUSPENSION 30 ML UDCUP PO PRN (14:00)
[2021-08-13] MEDS ORDERED: MORPHINE SULFATE 2 MG/ML SYRINGE IVP PRN (14:00)
[2021-08-13] MEDS: PANTOPRAZOLE SODIUM 80 MG in SODIUM CHLORIDE 0.9% 100 ML IV SCH (15:52)
[2021-08-13] MEDS: DOCUSATE SODIUM 100 MG CAPSULE PO SCH (21:00)
[2021-08-13] MEDS: GABAPENTIN 400 MG CAPSULE PO SCH (21:12)
[2021-08-13] MEDS: BACLOFEN 10 MG TABLET PO SCH (21:12)
[2021-08-13] MEDS ORDERED: SODIUM CHLORIDE 0.9% 500 ML IV ONE (22:34)
[2021-08-14] MEDS: PANTOPRAZOLE SODIUM 80 MG in SODIUM CHLORIDE 0.9% 100 ML IV SCH ×4 (00:12→23:21)
[2021-08-14 04:19] VITALS: BP 129/80
[2021-08-14 06:49] LABS: BASOPHILS % (AUTO) 0.6 % (0.0-2.0); EOSINOPHILS % (AUTO) 1.1 % (1.0-6.0); HEMATOCRIT 26.4 % (41-53); HEMOGLOBIN 8.8 g/dL (13.5-17.5); LYMPHOCYTES # (AUTO) 0.8 K/uL (1.0-4.8); LYMPHOCYTES % (AUTO) 6.7 % (22.0-44.0); MEAN CORPUSCULAR HEMOGLOBIN 25.6 pg (26.0-34.0); MEAN CORPUSCULAR HGB CONC 33.3 G/dL (31.0-37.0); MEAN CORPUSCULAR VOLUME 77 fL (80-100); MONOCYTES # (AUTO) 0.6 K/uL (0.1-1.0); MONOCYTES % (AUTO) 5.3 % (2.0-9.0); PLATELET COUNT (AUTO) 202 K/uL (150-450); RED BLOOD CELL COUNT(AUTO) 3.44 MIL/uL (4.50-5.90); RED CELL DISTRIBUTION WIDTH 24.1 % (11.5-14.5)
[2021-08-14] MEDS ORDERED: RINGERS SOLUTION,LACTATED 1,000 ML IV ONE ×2 (07:00→07:34)
[2021-08-14 07:06] LABS: NEUTROPHILS % (AUTO) 86.3 % (40.0-70.0)
[2021-08-14 07:09] LABS: ANION GAP 9 mmol/L (8-16); CALCIUM, TOTAL 8.5 mg/dL (8.8-10.5); CARBON DIOXIDE 22 mmol/L (22-29); CHLORIDE 105 mmol/L (98-107); CREATININE 0.65 mg/dL (0.60-1.30); GLOMERULAR FILTR. RATE CALC > 60 mL/min (>60); GLUCOSE,RANDOM 111 mg/dL (70-110); POTASSIUM 3.7 mmol/L (3.5-5.1); SODIUM SERUM 136 mmol/L (136-145); UREA NITROGEN, BLOOD 11 mg/dL (7-18)
[2021-08-14 07:45] VITALS: BP 136/82
[2021-08-14] MEDS ORDERED: PANTOPRAZOLE SODIUM 40 MG DR TABLET PO SCH (09:00)
[2021-08-14] MEDS: DOCUSATE SODIUM 100 MG CAPSULE PO SCH ×2 (09:00→21:00)
[2021-08-14] MEDS ORDERED: HYDROmorphone 2 MG/ML VIAL IVP PRN (09:15)
[2021-08-14] MEDS ORDERED: FentaNYL CITRATE PF 100 MCG/2 ML VIAL IVP PRN (09:15)
[2021-08-14] MEDS: CHOLECALCIFEROL (VIT D3) 1,000 UNITS [25 MCG] TABLET PO SCH (10:44)
[2021-08-14] MEDS: GABAPENTIN 400 MG CAPSULE PO SCH ×3 (10:44→21:00)
[2021-08-14] MEDS: BACLOFEN 10 MG TABLET PO SCH ×2 (10:44→21:00)
[2021-08-14] MEDS ORDERED: NEOSTIGMINE METHYLSULFATE 1 MG/ML 10 ML VIAL IVP ONE (12:00)
[2021-08-14] MEDS ORDERED: 0.9% SODIUM CHLORIDE 10 ML VIAL IVP ONE (12:00)
[2021-08-14] MEDS ORDERED: FentaNYL CITRATE PF 100 MCG/2 ML VIAL IVP ONE (12:00)
[2021-08-14] MEDS ORDERED: ONDANSETRON HCL 4 MG/2 ML VIAL IVP ONE (12:00)
[2021-08-14] MEDS ORDERED: EPHEDrine SULFATE 50 MG/ML VIAL IM ONE (12:00)
[2021-08-14] MEDS ORDERED: ROCURONIUM BROMIDE 10 MG/ML 5 ML VIAL IVP ONE (12:00)
[2021-08-14] MEDS ORDERED: LIDOCAINE/PF 2% 5 ML VIAL IM ONE (12:00)
[2021-08-14] MEDS ORDERED: PROPOFOL 1% 20 ML VIAL IVP ONE (12:00)
[2021-08-14] MEDS ORDERED: GLYCOPYRROLATE 0.2 MG/ML VIAL IM ONE (12:00)
[2021-08-14] MEDS ORDERED: MIDAZOLAM HCL 2 MG/2 ML VIAL IVP ONE (12:00)
[2021-08-14 15:48] VITALS: BP 118/76
[2021-08-14 20:09] VITALS: BP 116/57
[2021-08-15 00:21] VITALS: BP 123/89
[2021-08-15 06:41] LABS: BASOPHILS % (AUTO) 0.6 % (0.0-2.0); EOSINOPHILS % (AUTO) 2.2 % (1.0-6.0); HEMATOCRIT 24.7 % (41-53); HEMOGLOBIN 8.3 g/dL (13.5-17.5); LYMPHOCYTES # (AUTO) 1.3 K/uL (1.0-4.8); LYMPHOCYTES % (AUTO) 15.2 % (22.0-44.0); MEAN CORPUSCULAR HEMOGLOBIN 25.5 pg (26.0-34.0); MEAN CORPUSCULAR HGB CONC 33.6 G/dL (31.0-37.0); MEAN CORPUSCULAR VOLUME 76 fL (80-100); MONOCYTES # (AUTO) 0.7 K/uL (0.1-1.0); MONOCYTES % (AUTO) 8.5 % (2.0-9.0); NEUTROPHILS # (AUTO) 6.1 K/uL (1.8-7.7); NEUTROPHILS % (AUTO) 73.5 % (40.0-70.0); PLATELET COUNT (AUTO) 199 K/uL (150-450); RED BLOOD CELL COUNT(AUTO) 3.25 MIL/uL (4.50-5.90); RED CELL DISTRIBUTION WIDTH 24.6 % (11.5-14.5)
[2021-08-15 06:50] LABS: ANION GAP 6 mmol/L (8-16); CALCIUM, TOTAL 8.3 mg/dL (8.8-10.5); CARBON DIOXIDE 25 mmol/L (22-29); CHLORIDE 105 mmol/L (98-107); CREATININE 0.62 mg/dL (0.60-1.30); GLOMERULAR FILTR. RATE CALC > 60 mL/min (>60); GLUCOSE,RANDOM 105 mg/dL (70-110); SODIUM SERUM 136 mmol/L (136-145); UREA NITROGEN, BLOOD 10 mg/dL (7-18)
[2021-08-15 07:48] VITALS: BP 156/91
[2021-08-15] MEDS: OXYGEN THERAPY IH SCH ×2 (08:00→20:00)
[2021-08-15] MEDS ORDERED: ASCORBIC ACID 500 MG TABLET PO SCH (09:00)
[2021-08-15] MEDS: DOCUSATE SODIUM 100 MG CAPSULE PO SCH ×2 (09:00→19:55)
[2021-08-15] MEDS: CHOLECALCIFEROL (VIT D3) 1,000 UNITS [25 MCG] TABLET PO SCH (09:22)
[2021-08-15] MEDS: BACLOFEN 10 MG TABLET PO SCH ×2 (09:24→19:55)
[2021-08-15] MEDS: GABAPENTIN 400 MG CAPSULE PO SCH ×3 (09:28→19:55)
[2021-08-15] MEDS: PIPERACILLIN/TAZO 3.375 GM/D5W 50 ML IV SCH ×3 (09:35→20:05)
[2021-08-15] MEDS ORDERED: VANCOMYCIN HCL 1.25 GM in DEXTROSE 5%-WATER 250 ML IV ONE (10:00)
[2021-08-15] MEDS: PANTOPRAZOLE SODIUM 80 MG in SODIUM CHLORIDE 0.9% 100 ML IV SCH (12:22)
[2021-08-15] MEDS: MULTIVITAMINS WITH MINERALS, THERAPEUTIC TABLET PO SCH (12:27)
[2021-08-15] MEDS: IRON DEXTRAN COMPLEX 100 MG in SODIUM CHLORIDE 0.9% 100 ML IV SCH ×2 (13:00→14:13)
[2021-08-15 15:39] VITALS: BP 166/93
[2021-08-15] MEDS: VANCOMYCIN HCL 1.25 GM in DEXTROSE 5%-WATER 250 ML IV SCH (16:50)
[2021-08-15 19:30] VITALS: BP 158/87
[2021-08-15 23:41] VITALS: BP 155/93
[2021-08-16] MEDS: VANCOMYCIN HCL 1.25 GM in DEXTROSE 5%-WATER 250 ML IV SCH ×4 (00:25→15:12)
[2021-08-16] MEDS: PANTOPRAZOLE SODIUM 80 MG in SODIUM CHLORIDE 0.9% 100 ML IV SCH ×4 (00:25→22:45)
[2021-08-16] MEDS: PIPERACILLIN/TAZO 3.375 GM/D5W 50 ML IV SCH ×4 (04:21→22:20)
[2021-08-16 04:33] VITALS: BP 152/87
[2021-08-16 06:16] LABS: BASOPHILS % (AUTO) 0.7 % (0.0-2.0); EOSINOPHILS % (AUTO) 5.2 % (1.0-6.0); HEMATOCRIT 26.2 % (41-53); HEMOGLOBIN 8.7 g/dL (13.5-17.5); LYMPHOCYTES # (AUTO) 1.4 K/uL (1.0-4.8); LYMPHOCYTES % (AUTO) 18.7 % (22.0-44.0); MEAN CORPUSCULAR HEMOGLOBIN 25.3 pg (26.0-34.0); MEAN CORPUSCULAR HGB CONC 33.2 G/dL (31.0-37.0); MEAN CORPUSCULAR VOLUME 76 fL (80-100); MONOCYTES # (AUTO) 0.6 K/uL (0.1-1.0); MONOCYTES % (AUTO) 7.8 % (2.0-9.0); NEUTROPHILS # (AUTO) 5.1 K/uL (1.8-7.7); NEUTROPHILS % (AUTO) 67.6 % (40.0-70.0); PLATELET COUNT (AUTO) 232 K/uL (150-450); RED BLOOD CELL COUNT(AUTO) 3.44 MIL/uL (4.50-5.90); RED CELL DISTRIBUTION WIDTH 25.6 % (11.5-14.5)
[2021-08-16 07:08] LABS: ANION GAP 8 mmol/L (8-16); CALCIUM, TOTAL 8.5 mg/dL (8.8-10.5); CARBON DIOXIDE 27 mmol/L (22-29); CHLORIDE 104 mmol/L (98-107); CREATININE 0.64 mg/dL (0.60-1.30); GLOMERULAR FILTR. RATE CALC > 60 mL/min (>60); GLUCOSE,RANDOM 96 mg/dL (70-110); POTASSIUM 3.8 mmol/L (3.5-5.1); SODIUM SERUM 139 mmol/L (136-145); UREA NITROGEN, BLOOD 8 mg/dL (7-18); VANCOMYCIN,RANDOM 28.4 mcg/mL (25.0-50.0)
[2021-08-16 07:48] VITALS: BP 167/87
[2021-08-16] MEDS: DOCUSATE SODIUM 100 MG CAPSULE PO SCH ×2 (09:00→20:59)
[2021-08-16] MEDS ORDERED: GABAPENTIN 400 MG CAPSULE PO SCH (09:00)
[2021-08-16] MEDS ORDERED: [UNRECOGNIZED DRUG - OTHER] PO SCH (09:00)
[2021-08-16] MEDS ORDERED: BACLOFEN 10 MG TABLET PO SCH (09:00)
[2021-08-16] MEDS ORDERED: PANTOPRAZOLE SODIUM 40 MG DR TABLET PO SCH (09:00)
[2021-08-16] MEDS: MULTIVITAMINS WITH MINERALS, THERAPEUTIC TABLET PO SCH (09:11)
[2021-08-16] MEDS: FERROUS SULFATE 325 MG EC TABLET PO SCH (09:11)
[2021-08-16] MEDS: CARVEDILOL 25 MG TABLET PO SCH ×2 (09:20→21:00)
[2021-08-16] MEDS: CHOLECALCIFEROL (VIT D3) 1,000 UNITS [25 MCG] TABLET PO SCH (09:20)
[2021-08-16] MEDS: ASCORBIC ACID 500 MG TABLET PO SCH (09:20)
[2021-08-16] MEDS: OXYGEN THERAPY IH SCH ×2 (09:22→20:00)
[2021-08-16] MEDS: GABAPENTIN 400 MG CAPSULE PO SCH ×3 (09:50→21:35)
[2021-08-16] MEDS: BACLOFEN 10 MG TABLET PO SCH ×2 (09:50→20:59)
[2021-08-16 19:37] VITALS: BP 171/89
[2021-08-16] MEDS: RIVAROXABAN 20 MG TABLET PO SCH (20:58)
[2021-08-16] MEDS: IRON DEXTRAN COMPLEX 100 MG in SODIUM CHLORIDE 0.9% 100 ML IV SCH (20:58)
[2021-08-16] MEDS ORDERED: SODIUM CHLORIDE 0.9% 250 ML IV ONE (22:31)
[2021-08-16] MEDS: HydrALAZINE HCL 20 MG/ML VIAL IVP PRN (23:06)
[2021-08-16 23:44] VITALS: BP 148/80
[2021-08-17] MEDS: VANCOMYCIN HCL 1.25 GM in DEXTROSE 5%-WATER 250 ML IV SCH ×2 (00:11→14:06)
[2021-08-17] MEDS: PIPERACILLIN/TAZO 3.375 GM/D5W 50 ML IV SCH ×4 (03:35→21:11)
[2021-08-17 08:46] LABS: ANION GAP 11 mmol/L (8-16); CALCIUM, TOTAL 8.6 mg/dL (8.8-10.5); CARBON DIOXIDE 26 mmol/L (22-29); CHLORIDE 104 mmol/L (98-107); CREATININE 0.56 mg/dL (0.60-1.30); GLUCOSE,RANDOM 89 mg/dL (70-110); POTASSIUM 3.5 mmol/L (3.5-5.1); SODIUM SERUM 141 mmol/L (136-145); UREA NITROGEN, BLOOD 5 mg/dL (7-18)
[2021-08-17 08:47] LABS: GLOMERULAR FILTR. RATE CALC > 60 mL/min (>60)
[2021-08-17 09:22] VITALS: BP 176/90
[2021-08-17] MEDS: DOCUSATE SODIUM 100 MG CAPSULE PO SCH ×2 (09:36→21:00)
[2021-08-17] MEDS: PANTOPRAZOLE SODIUM 80 MG in SODIUM CHLORIDE 0.9% 100 ML IV SCH (09:36)
[2021-08-17] MEDS: CHOLECALCIFEROL (VIT D3) 1,000 UNITS [25 MCG] TABLET PO SCH (09:36)
[2021-08-17] MEDS: CARVEDILOL 25 MG TABLET PO SCH ×2 (09:37→21:10)
[2021-08-17] MEDS: MULTIVITAMINS WITH MINERALS, THERAPEUTIC TABLET PO SCH (09:37)
[2021-08-17] MEDS: GABAPENTIN 400 MG CAPSULE PO SCH ×3 (09:37→21:09)
[2021-08-17] MEDS: ASCORBIC ACID 500 MG TABLET PO SCH (09:37)
[2021-08-17] MEDS: FERROUS SULFATE 325 MG EC TABLET PO SCH (09:37)
[2021-08-17] MEDS: BACLOFEN 10 MG TABLET PO SCH ×2 (09:39→21:09)
[2021-08-17 12:19] VITALS: BP 114/70
[2021-08-17 16:48] VITALS: BP 120/91
[2021-08-17] MEDS: RIVAROXABAN 20 MG TABLET PO SCH (17:56)
[2021-08-17] MEDS: IRON DEXTRAN COMPLEX 100 MG in SODIUM CHLORIDE 0.9% 100 ML IV SCH (17:57)
[2021-08-17 19:57] VITALS: BP 115/64
[2021-08-17] MEDS: OXYGEN THERAPY IH SCH (21:12)
[2021-08-17 23:37] VITALS: BP 126/67
[2021-08-18] VITALS (7 sets, daily range): BP systolic 120–169; BP diastolic 70–95
[2021-08-18] MEDS: VANCOMYCIN HCL 1.25 GM in DEXTROSE 5%-WATER 250 ML IV SCH ×2 (00:27→05:17)
[2021-08-18] MEDS: PIPERACILLIN/TAZO 3.375 GM/D5W 50 ML IV SCH ×4 (04:18→20:40)
[2021-08-18] MEDS: PANTOPRAZOLE SODIUM 80 MG in SODIUM CHLORIDE 0.9% 100 ML IV SCH (04:46)
[2021-08-18 07:59] LABS: ANION GAP 7 mmol/L (8-16); CALCIUM, TOTAL 8.5 mg/dL (8.8-10.5); CARBON DIOXIDE 29 mmol/L (22-29); CHLORIDE 106 mmol/L (98-107); CREATININE 0.68 mg/dL (0.60-1.30); GLOMERULAR FILTR. RATE CALC > 60 mL/min (>60); GLUCOSE,RANDOM 95 mg/dL (70-110); POTASSIUM 3.7 mmol/L (3.5-5.1); SODIUM SERUM 142 mmol/L (136-145); UREA NITROGEN, BLOOD 7 mg/dL (7-18)
[2021-08-18] MEDS: OXYGEN THERAPY IH SCH ×2 (08:00→20:00)
[2021-08-18] MEDS: CHOLECALCIFEROL (VIT D3) 1,000 UNITS [25 MCG] TABLET PO SCH (08:20)
[2021-08-18] MEDS: MULTIVITAMINS WITH MINERALS, THERAPEUTIC TABLET PO SCH (08:20)
[2021-08-18] MEDS: CARVEDILOL 25 MG TABLET PO SCH ×2 (08:21→20:41)
[2021-08-18] MEDS: ASCORBIC ACID 500 MG TABLET PO SCH (08:21)
[2021-08-18] MEDS: FERROUS SULFATE 325 MG EC TABLET PO SCH (08:22)
[2021-08-18] MEDS: BACLOFEN 10 MG TABLET PO SCH ×2 (08:22→20:40)
[2021-08-18] MEDS: GABAPENTIN 400 MG CAPSULE PO SCH ×3 (08:23→20:41)
[2021-08-18] MEDS: DOCUSATE SODIUM 100 MG CAPSULE PO SCH ×2 (08:23→20:41)
[2021-08-18 08:26] LABS: VANCOMYCIN,RANDOM 51.4 mcg/mL (25.0-50.0)
[2021-08-18] MEDS ORDERED: SODIUM CHLORIDE 0.9% 250 ML IV ONE (11:09)
[2021-08-18] MEDS: HydrALAZINE HCL 20 MG/ML VIAL IVP PRN (11:16)
[2021-08-18 13:31] LABS: GLUCOMETER DEV NAME(LOC) 5S.2B; GLUCOSE,POINT OF CARE 103 MG/DL (70-110)
[2021-08-18 15:20] LABS: BASOPHILS % (AUTO) 0.9 % (0.0-2.0); EOSINOPHILS % (AUTO) 5.4 % (1.0-6.0); HEMATOCRIT 24.9 % (41-53); HEMOGLOBIN 8.4 g/dL (13.5-17.5); LYMPHOCYTES # (AUTO) 1.8 K/uL (1.0-4.8); LYMPHOCYTES % (AUTO) 19.6 % (22.0-44.0); MEAN CORPUSCULAR HEMOGLOBIN 25.4 pg (26.0-34.0); MEAN CORPUSCULAR HGB CONC 33.7 G/dL (31.0-37.0); MEAN CORPUSCULAR VOLUME 75 fL (80-100); MONOCYTES # (AUTO) 0.8 K/uL (0.1-1.0); MONOCYTES % (AUTO) 8.8 % (2.0-9.0); NEUTROPHILS # (AUTO) 5.9 K/uL (1.8-7.7); NEUTROPHILS % (AUTO) 65.3 % (40.0-70.0); PLATELET COUNT (AUTO) 333 K/uL (150-450); RED CELL DISTRIBUTION WIDTH 26.7 % (11.5-14.5)
[2021-08-18 15:42] LABS: ANION GAP 12 mmol/L (8-16); CALCIUM, TOTAL 8.4 mg/dL (8.8-10.5); CARBON DIOXIDE 26 mmol/L (22-29); CHLORIDE 106 mmol/L (98-107); CREATININE 0.79 mg/dL (0.60-1.30); GLOMERULAR FILTR. RATE CALC > 60 mL/min (>60); GLUCOSE,RANDOM 103 mg/dL (70-110); POTASSIUM 4.1 mmol/L (3.5-5.1); SODIUM SERUM 144 mmol/L (136-145); UREA NITROGEN, BLOOD 10 mg/dL (7-18)
[2021-08-18 15:44] LABS: PLATELET MORPHOLOGY COMMENT LARGE PLTS PRESENT
[2021-08-18] MEDS: RIVAROXABAN 20 MG TABLET PO SCH (17:48)
[2021-08-18] MEDS: IRON DEXTRAN COMPLEX 100 MG in SODIUM CHLORIDE 0.9% 100 ML IV SCH (17:48)
[2021-08-18] MEDS: LACTOBAC ACID/BULG/BIFID/THERM TABLET PO SCH (20:40)
[2021-08-18] MEDS: PANTOPRAZOLE SODIUM 40 MG DR TABLET PO SCH (20:41)
[2021-08-19] MEDS: PIPERACILLIN/TAZO 3.375 GM/D5W 50 ML IV SCH ×4 (03:00→23:16)
[2021-08-19] MEDS ORDERED: CloNIDine HCL 0.1 MG TABLET PO ONE (05:00)
[2021-08-19 05:08] VITALS: BP 126/87
[2021-08-19 07:26] LABS: ANION GAP 9 mmol/L (8-16); CALCIUM, TOTAL 8.7 mg/dL (8.8-10.5); CARBON DIOXIDE 27 mmol/L (22-29); CHLORIDE 107 mmol/L (98-107); CREATININE 0.69 mg/dL (0.60-1.30); GLOMERULAR FILTR. RATE CALC > 60 mL/min (>60); GLUCOSE,RANDOM 94 mg/dL (70-110); POTASSIUM 3.9 mmol/L (3.5-5.1); SODIUM SERUM 143 mmol/L (136-145); UREA NITROGEN, BLOOD 8 mg/dL (7-18)
[2021-08-19 07:45] VITALS: BP 163/89
[2021-08-19] MEDS: OXYGEN THERAPY IH SCH ×2 (08:00→21:18)
[2021-08-19] MEDS: DOCUSATE SODIUM 100 MG CAPSULE PO SCH ×2 (09:00→20:44)
[2021-08-19 09:15] VITALS: BP 166/98
[2021-08-19] MEDS: CARVEDILOL 25 MG TABLET PO SCH ×2 (09:18→20:34)
[2021-08-19] MEDS: LACTOBAC ACID/BULG/BIFID/THERM TABLET PO SCH ×2 (09:18→20:33)
[2021-08-19] MEDS: FERROUS SULFATE 325 MG EC TABLET PO SCH (09:18)
[2021-08-19] MEDS: GABAPENTIN 400 MG CAPSULE PO SCH ×3 (09:19→20:34)
[2021-08-19] MEDS: BACLOFEN 10 MG TABLET PO SCH ×2 (09:19→20:34)
[2021-08-19] MEDS: MULTIVITAMINS WITH MINERALS, THERAPEUTIC TABLET PO SCH (09:19)
[2021-08-19] MEDS: PANTOPRAZOLE SODIUM 40 MG DR TABLET PO SCH ×2 (09:19→20:34)
[2021-08-19] MEDS: CHOLECALCIFEROL (VIT D3) 1,000 UNITS [25 MCG] TABLET PO SCH (09:20)
[2021-08-19] MEDS: ASCORBIC ACID 500 MG TABLET PO SCH (09:26)
[2021-08-19 16:25] VITALS: BP 180/108
[2021-08-19] MEDS: RIVAROXABAN 20 MG TABLET PO SCH (18:21)
[2021-08-19 19:16] VITALS: BP 145/91
[2021-08-19] MEDS: IRON DEXTRAN COMPLEX 100 MG in SODIUM CHLORIDE 0.9% 100 ML IV SCH (20:40)
[2021-08-19 23:53] VITALS: BP 141/92
[2021-08-20] VITALS (7 sets, daily range): BP systolic 117–156; BP diastolic 74–101
[2021-08-20] MEDS ORDERED: SODIUM CHLORIDE 0.9% 250 ML IV ONE (05:07)
[2021-08-20] MEDS: PIPERACILLIN/TAZO 3.375 GM/D5W 50 ML IV SCH ×4 (05:14→23:54)
[2021-08-20] MEDS: OXYGEN THERAPY IH SCH ×2 (08:00→20:30)
[2021-08-20] MEDS: ASCORBIC ACID 500 MG TABLET PO SCH (08:58)
[2021-08-20] MEDS: CARVEDILOL 25 MG TABLET PO SCH ×2 (08:58→20:22)
[2021-08-20] MEDS: BACLOFEN 10 MG TABLET PO SCH ×2 (08:58→20:21)
[2021-08-20] MEDS: FERROUS SULFATE 325 MG EC TABLET PO SCH (08:58)
[2021-08-20] MEDS: LACTOBAC ACID/BULG/BIFID/THERM TABLET PO SCH ×2 (08:58→20:20)
[2021-08-20] MEDS: GABAPENTIN 400 MG CAPSULE PO SCH ×3 (08:58→20:20)
[2021-08-20] MEDS: MULTIVITAMINS WITH MINERALS, THERAPEUTIC TABLET PO SCH (08:59)
[2021-08-20] MEDS: CHOLECALCIFEROL (VIT D3) 1,000 UNITS [25 MCG] TABLET PO SCH (08:59)
[2021-08-20] MEDS: PANTOPRAZOLE SODIUM 40 MG DR TABLET PO SCH ×2 (08:59→20:20)
[2021-08-20] MEDS: DOCUSATE SODIUM 100 MG CAPSULE PO SCH ×2 (09:00→20:29)
[2021-08-20] MEDS: HYDROCODONE/ACETAMINOPHEN 5-325 MG TABLET PO PRN ×2 (11:15→17:52)
[2021-08-20] MEDS ORDERED: SODIUM CHLORIDE 0.9% 1,000 ML ONE (15:46)
[2021-08-20] MEDS: RIVAROXABAN 20 MG TABLET PO SCH (17:48)
[2021-08-20] MEDS: IRON DEXTRAN COMPLEX 100 MG in SODIUM CHLORIDE 0.9% 100 ML IV SCH (18:24)
[2021-08-20] MEDS: ZOLPIDEM TARTRATE 5 MG TABLET PO PRN (23:55)
[2021-08-21] MEDS: PIPERACILLIN/TAZO 3.375 GM/D5W 50 ML IV SCH ×4 (05:17→23:36)
[2021-08-21 06:05] VITALS: BP 131/79
[2021-08-21] MEDS: OXYGEN THERAPY IH SCH ×2 (08:00→20:00)
[2021-08-21] MEDS: LACTOBAC ACID/BULG/BIFID/THERM TABLET PO SCH ×2 (08:33→20:54)
[2021-08-21] MEDS: CARVEDILOL 25 MG TABLET PO SCH ×2 (08:34→20:55)
[2021-08-21] MEDS: GABAPENTIN 400 MG CAPSULE PO SCH ×3 (08:34→20:55)
[2021-08-21] MEDS: ASCORBIC ACID 500 MG TABLET PO SCH (08:34)
[2021-08-21] MEDS: FERROUS SULFATE 325 MG EC TABLET PO SCH (08:35)
[2021-08-21] MEDS: CHOLECALCIFEROL (VIT D3) 1,000 UNITS [25 MCG] TABLET PO SCH (08:35)
[2021-08-21] MEDS: BACLOFEN 10 MG TABLET PO SCH ×2 (08:35→20:55)
[2021-08-21] MEDS: MULTIVITAMINS WITH MINERALS, THERAPEUTIC TABLET PO SCH (08:35)
[2021-08-21] MEDS: PANTOPRAZOLE SODIUM 40 MG DR TABLET PO SCH ×2 (08:35→20:55)
[2021-08-21] MEDS: DOCUSATE SODIUM 100 MG CAPSULE PO SCH ×2 (08:36→20:47)
[2021-08-21 08:51] VITALS: BP 153/90
[2021-08-21 13:19] VITALS: BP 124/99
[2021-08-21] MEDS: HYDROCODONE/ACETAMINOPHEN 5-325 MG TABLET PO PRN ×2 (13:49→20:58)
[2021-08-21 14:32] LABS: BASOPHILS % (AUTO) 0.6 % (0.0-2.0); HEMOGLOBIN 9.5 g/dL (13.5-17.5); LYMPHOCYTES % (AUTO) 20.7 % (22.0-44.0); MEAN CORPUSCULAR HEMOGLOBIN 25.6 pg (26.0-34.0); MEAN CORPUSCULAR VOLUME 75 fL (80-100); MONOCYTES # (AUTO) 0.6 K/uL (0.1-1.0); MONOCYTES % (AUTO) 6.3 % (2.0-9.0); NEUTROPHILS # (AUTO) 6.5 K/uL (1.8-7.7); NEUTROPHILS % (AUTO) 68.4 % (40.0-70.0); PLATELET COUNT (AUTO) 446 K/uL (150-450); RED BLOOD CELL COUNT(AUTO) 3.73 MIL/uL (4.50-5.90)
[2021-08-21 15:21] LABS: PLATELET MORPHOLOGY COMMENT GIANT PLTS PRESENT
[2021-08-21 15:30] VITALS: BP 130/84
[2021-08-21] MEDS: RIVAROXABAN 20 MG TABLET PO SCH (17:57)
[2021-08-21] MEDS: IRON DEXTRAN COMPLEX 100 MG in SODIUM CHLORIDE 0.9% 100 ML IV SCH (18:03)
[2021-08-21 20:52] VITALS: BP 166/90
[2021-08-21] MEDS: ZOLPIDEM TARTRATE 5 MG TABLET PO PRN (23:36)
[2021-08-21 23:53] VITALS: BP 102/60
[2021-08-22 04:00] VITALS: BP 115/74
[2021-08-22] MEDS: PIPERACILLIN/TAZO 3.375 GM/D5W 50 ML IV SCH ×4 (05:03→23:37)
[2021-08-22 07:02] VITALS: BP 189/106
[2021-08-22] MEDS: ASCORBIC ACID 500 MG TABLET PO SCH (07:43)
[2021-08-22] MEDS: BACLOFEN 10 MG TABLET PO SCH ×2 (07:43→20:37)
[2021-08-22] MEDS: CHOLECALCIFEROL (VIT D3) 1,000 UNITS [25 MCG] TABLET PO SCH (07:43)
[2021-08-22] MEDS: PANTOPRAZOLE SODIUM 40 MG DR TABLET PO SCH ×2 (07:44→20:37)
[2021-08-22] MEDS: LACTOBAC ACID/BULG/BIFID/THERM TABLET PO SCH ×2 (07:44→20:37)
[2021-08-22] MEDS: MULTIVITAMINS WITH MINERALS, THERAPEUTIC TABLET PO SCH (07:44)
[2021-08-22] MEDS: CARVEDILOL 25 MG TABLET PO SCH ×2 (07:44→23:49)
[2021-08-22] MEDS: OXYGEN THERAPY IH SCH ×2 (07:45→20:00)
[2021-08-22] MEDS: FERROUS SULFATE 325 MG EC TABLET PO SCH (07:47)
[2021-08-22] MEDS: DOCUSATE SODIUM 100 MG CAPSULE PO SCH ×2 (07:51→20:23)
[2021-08-22] MEDS: GABAPENTIN 400 MG CAPSULE PO SCH ×3 (09:59→20:36)
[2021-08-22 11:40] VITALS: BP 108/72
[2021-08-22 15:17] VITALS: BP 126/88
[2021-08-22] MEDS: RIVAROXABAN 20 MG TABLET PO SCH (18:24)
[2021-08-22] MEDS: IRON DEXTRAN COMPLEX 100 MG in SODIUM CHLORIDE 0.9% 100 ML IV SCH (18:24)
[2021-08-22 19:41] VITALS: BP 107/69
[2021-08-22] MEDS: HYDROCODONE/ACETAMINOPHEN 5-325 MG TABLET PO PRN (20:38)
[2021-08-22] MEDS ORDERED: SODIUM CHLORIDE 0.9% 0 ML IV ONE (23:30)
[2021-08-22] MEDS ORDERED: SODIUM CHLORIDE 0.9% 500 ML IV ONE (23:31)
[2021-08-22 23:49] VITALS: BP 135/72
[2021-08-23 04:36] VITALS: BP 105/67
[2021-08-23] MEDS: PIPERACILLIN/TAZO 3.375 GM/D5W 50 ML IV SCH ×3 (05:13→18:00)
[2021-08-23] MEDS: DOCUSATE SODIUM 100 MG CAPSULE PO SCH (07:24)
[2021-08-23 07:30] VITALS: BP 145/91
[2021-08-23] MEDS: OXYGEN THERAPY IH SCH (07:59)
[2021-08-23] MEDS: CARVEDILOL 25 MG TABLET PO SCH (08:10)
[2021-08-23] MEDS: BACLOFEN 10 MG TABLET PO SCH (08:10)
[2021-08-23] MEDS: LACTOBAC ACID/BULG/BIFID/THERM TABLET PO SCH (08:10)
[2021-08-23] MEDS: FERROUS SULFATE 325 MG EC TABLET PO SCH (08:10)
[2021-08-23] MEDS: MULTIVITAMINS WITH MINERALS, THERAPEUTIC TABLET PO SCH (08:11)
[2021-08-23] MEDS: CHOLECALCIFEROL (VIT D3) 1,000 UNITS [25 MCG] TABLET PO SCH (08:11)
[2021-08-23] MEDS: GABAPENTIN 400 MG CAPSULE PO SCH ×2 (08:11→15:16)
[2021-08-23] MEDS: ASCORBIC ACID 500 MG TABLET PO SCH (08:11)
[2021-08-23] MEDS: PANTOPRAZOLE SODIUM 40 MG DR TABLET PO SCH (08:11)
[2021-08-23] MEDS: HYDROCODONE/ACETAMINOPHEN 5-325 MG TABLET PO PRN ×2 (08:14→18:41)
[2021-08-23] MEDS ORDERED: AMOX-426 PO (08:47)
[2021-08-23 11:18] VITALS: BP 106/62
[2021-08-23 15:15] VITALS: BP 123/81
[2021-08-23] MEDS: IRON DEXTRAN COMPLEX 100 MG in SODIUM CHLORIDE 0.9% 100 ML IV SCH (18:00)
[2021-08-23] MEDS: RIVAROXABAN 20 MG TABLET PO SCH (18:18)
[2021-08-23 19:15] VITALS: BP 158/90
== END 2021-08-23 19:25 | disposition home or self-care (01) | DRG 710 ==
LOC: EMS 10:41 → 5S 13:47
PROVIDERS: ADMIT Internal Medicine; ATTEND Internal Medicine
PROC: 30233N1 Transfusion of Nonautologous Red Blood Cells into Peripheral Vein, Percutaneous Approach (ICD-10-PCS; 2021-08-13)
PROC: 0QB20ZZ Excision of Right Pelvic Bone, Open Approach (ICD-10-PCS; 2021-08-14)
PROC: 0QB30ZZ Excision of Left Pelvic Bone, Open Approach (ICD-10-PCS; principal; 2021-08-14 08:30)
DX: A41.9 Sepsis, unspecified organism (principal); L89.214 Pressure ulcer of right hip, stage 4; L89.224 Pressure ulcer of left hip, stage 4; E44.0 Moderate protein-calorie malnutrition; L89.324 Pressure ulcer of left buttock, stage 4; L89.314 Pressure ulcer of right buttock, stage 4; S22.41XA Multiple fractures of ribs, right side, initial encounter for closed fracture; G82.20 Paraplegia, unspecified; L89.159 Pressure ulcer of sacral region, unspecified stage; D63.8 Anemia in other chronic diseases classified elsewhere; N28.1 Cyst of kidney, acquired; R16.2 Hepatomegaly with splenomegaly, not elsewhere classified; N31.9 Neuromuscular dysfunction of bladder, unspecified; I10 Essential (primary) hypertension; L89.229 Pressure ulcer of left hip, unspecified stage; F17.210 Nicotine dependence, cigarettes, uncomplicated; K80.20 Calculus of gallbladder without cholecystitis without obstruction; Z20.822 Contact with and (suspected) exposure to COVID-19; K27.9 Peptic ulcer, site unspecified, unspecified as acute or chronic, without hemorrhage or perforation; Z93.3 Colostomy status; Z86.718 Personal history of other venous thrombosis and embolism; Z95.828 Presence of other vascular implants and grafts; Z68.26 Body mass index [BMI] 26.0-26.9, adult
CPT/HCPCS: 36600; 71045; 74177; 80048; 80053; 80202; 81001; 82271; 82805; 82962; 83605; 85025; 85610; 86850; 86900; 86901; 86923; 87040; 87070; 87075; 87077; 87081; 87205; 88304; 93005; 93970; 99291; C9113; G0378; J0360; J0690; J0692; J1750; J2250; J2270; J2405; J2543; J2704; J3010; J3370; J3490; J7030; J7040; J7050; J7060; J7120; P9016; Q9967; 36415-L1; 36415-TC; Z7610